=== PATIENT | male | born 1965 | race Caucasian/White ===

== ENCOUNTER 2019-03-07 08:30 | Outpatient (RCR) | payer OTHER, SELFPAY | END 2019-03-12 00:01 | LOC: RWY 08:30 | PROVIDERS: Family Provider Family Medicine; Visit Provider Surgery Surgical Oncology | DX: A41.9 Sepsis, unspecified organism (principal); E11.9 Type 2 diabetes mellitus without complications; Z94.0 Kidney transplant status; Z94.4 Liver transplant status | CPT/HCPCS: 36415; 80053 ×4; 80197 ×4; 82550 ×2; 82977 ×4; 83735 ×4; 84100 ×4; 85007; 85025 ×3; 85027 ==

== ENCOUNTER 2019-03-18 16:33 | Outpatient (REF) | payer OTHER, SELFPAY ==
[2019-03-18 17:22] LABS: Basophils % 0.5 %; Eosinophils # 0.1 10^3/uL (0.0-0.8); Hematocrit 30.3 % (42.0-52.0); Lymphocytes # 0.5 10^3/uL (0.8-4.8); Lymphocytes % 11.1 %; Mean Corpuscular Hemoglobin 31.2 pg (28.0-34.0); Mean Corpuscular Volume 94.4 fL (80-94); Mean Platelet Volume 10.4 fL (7.4-10.4); Monocytes # 0.2 10^3/uL (0.2-0.9); Monocytes % 5.4 %; Neutrophils # 3.2 10^3/uL (1.8-7.7); Neutrophils % 79.3 %; Nucleated Red Blood Cells % 0 %; Platelet Count 165 10^3/cmm (130-400); Red Blood Count 3.21 10^6/uL (4.1-5.3); Red Cell Distribution Width 14.4 % (12.1-15.1)
[2019-03-19 01:52] LABS: Alanine Aminotransferase 29 U/L (0-41); Albumin Level 3.7 g/dL (3.5-5.2); Alkaline Phosphatase 134 IU/L (40-130); Aspartate Amino Transferase 17 U/L (0-40); Blood Urea Nitrogen 14 mg/dL (6-20); Calcium 9.2 mg/Dl (8.6-10.0); Chloride 101 mmol/L (98-107); Globulin 2.4 g/dL (1.3-4.6); Glomerular Filtration Rate 69.8 mL/min (90-130); Glucose 167 mg/dL (74-109); Magnesium 1.4 mg/dL (1.7-2.3); Potassium 3.6 mmol/L (3.5-5.1); Sodium 137 mmol/L (136-145); Total Bilirubin 0.2 mg/dL (0.15-1.2); Total Protein 6.1 g/dL (6.6-8.7)
[2019-03-19 01:59] LABS: Anion Gap 18.6 (5-19); Carbon Dioxide 21 mmol/L (22-29)
== END 2019-03-18 16:34 | disposition home or self-care (01) ==
LOC: LAB 16:33
PROVIDERS: Family Provider Family Medicine; PCP Family Medicine; Visit Provider Surgery Surgical Oncology
DX: Z01.89 Encounter for other specified special examinations (principal)
CPT/HCPCS: 80053; 80197; 83735; 84100; 85025

== ENCOUNTER 2019-04-05 12:14 | Emergency (ER) | payer OTHER, SELFPAY ==
[2019-04-05] VITALS (55 sets, daily range): BP systolic 98–127; BP diastolic 64–80; PULSE 94–106; RESP 16–18; TEMP 36.9; O2SAT 92–98; BMI 27.6
--- NOTE | 2019-04-05 12:53 | XRR_ITS ---
PROCEDURE INFORMATION: Exam: XR Pelvis Exam date and time: 04/05/2019 1:31 PM Age: 53 years old Clinical indication: Injury or trauma; Fall; Initial encounter; Blunt trauma (contusions or hematomas); Right; Hip; Injury date: 3 days ago TECHNIQUE: Imaging protocol: XR pelvis. Views: 1 or 2 view. COMPARISON: No relevant prior studies available. FINDINGS: Bones/joints: Unremarkable. No acute fracture. Soft tissues: Diffuse soft tissue metallic densities seen throughout the right hip and right upper leg. The remainder of the soft tissues are unremarkable. XR/XR pelvis 1-2V* [id number] IMPRESSION: 1. No acute bone abnormality 2. Diffuse soft tissue densities right hip and upper leg
--- NOTE | 2019-04-05 12:53 | CT_ITS ---
WS: [id number] CT ABDOMEN AND PELVIS NONCONTRAST HISTORY: fall injury TECHNIQUE: Imaging performed through the abdomen and pelvis. Coronal and sagittal reformats are submi tted. All CT scans at [facility] use at least one of these dose optimization techniques: automated exposure control; mA and/or kV adjustment per patient size (includes targeted exams where d ose is matched to clinical indication); or iterative reconstruction. DLP: 1872.37 mGy.cm COMPARISON: None available. Lower thorax: Atelectasis at the lung bases. Dystrophic calcifications noted in the paraspinal distri bution beginning in the lower thoracic through lumbar and retroperitoneum. Heart is top normal size. No pericardial effusion. Liver: By history patient had a recent liver transplant. Subcapsular fluid collection along the RIGHT diaphragmatic surface measures 3.4 cm. Gallbladder: Not visualized and may been removed. Pancreas: Normal. Spleen: Spleen is slightly enlarged measuring 14.4 cm. There is a small cyst or fluid collection shayne g the lateral aspect of the spleen. Adrenal glands: Normal. Right kidney: Mild perinephric stranding with no obstruction. Left kidney: Mild perinephric stranding with no obstruction. Abdominal aorta and IVC are unremarkable. Additional edema within the upper abdomen mesentery. GI tract: No GI tract obstruction. Ostomy site in the RIGHT abdomen. Pelvis: There is a fluid collection inseparable from the lower pole of transplanted kidney in the RIG HT pelvis. Fluid collection extends between the RIGHT kidney and the urinary bladder. Urinary bladder is being displaced to the LEFT. This collection measures 14 x 14 cm. Osseous structures: No acute fractures are identified. Extensive calcifications are noted in the soft tissues of the RIGHT hip probably for myositis ossificans or dermatomyositis. CT/CT abdomen pelvis wo con [id number] IMPRESSION: 1. Large fluid collection measuring 14 x 14 cm in the RIGHT pelvis. Inseparabl e from the transplanted kidney in the RIGHT pelvis and displacing the urinary b ladder to the LEFT. This could be a urinoma from renal injury or bladder injury . Benign collection associated with the surgery or collecting ascites. 2. Prior cholecystectomy. 3. Mild mesenteric edema in the upper abdomen. 4. No GI tract obstruction.
--- NOTE | 2019-04-05 12:53 | XRR_ITS ---
PROCEDURE INFORMATION: Exam: XR Right Shoulder Exam date and time: 04/05/2019 1:31 PM Age: 53 years old Clinical indication: Injury or trauma; Fall; Initial encounter; Blunt trauma (contusions or hematomas; Shoulder; Right; Injury date: 3 days ago; Additional info: Fall, RT shoulder pain TECHNIQUE: Imaging protocol: XR Right shoulder. Views: 2 or more views. COMPARISON: No relevant prior studies available. FINDINGS: Bones/joints: There is an avulsion fracture in the lateral superior aspect of the right humeral head. Soft tissues: Normal. XR/XR shoulder RT min 2V* [id number] IMPRESSION: Displaced avulsion fracture superior lateral aspect right humeral head
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
--- NOTE | 2019-04-05 13:33 | ED_ITS ---
Entered by Dodie Keith, acting as scribe for Sindy Quiros MD Apr 05, 2019 12:14 Documented by User: Sindy Quiros MD 04/05/19 20:38 HPI - Fall General: Chief Complaint: Fall Stated Complaint: hip pain Time Seen by Provider: 04/05/19 12:43 Source: patient and family Mode of arrival: ambulatory Limitations: no limitations History of Present Illness: HPI Narrative: 53 yo male presents to ED after a fall 3 days ago. The patient states fell and hurt R hip and R arm. The patient is jaundiced after the fall; the states he had not been jaundiced before the fall. The patient has had a liver and kidney transplant in November at [facility]. He said his liver failed due to the [facility] water being poisoned and the liver failure caused the kidney failure. His liver and kidney functions have been normal since the transplant. complaint: fall Onset (ago): day(s) (3) Fall from: standing (running) Fall witnessed: no Place fall occurred: home Loss of consciousness: None Prolonged down time: no Symptoms prior to fall: none Context: tripped/slipped Location of injury: pelvis (R hip) Location of injury - extremities: Right: arm (upper arm) Severity: moderate Quality: aching Associated symptoms-after fall: Reports difficulty walking; Denies chest pain Review of Systems Const: Denies: fever Eyes: Denies: change in vision ENMT: Denies: throat pain or mouth pain Card: Denies: chest pain Resp: Denies: shortness of breath GI: Denies: nausea, vomiting or diarrhea Musc: Denies: back pain Skin/Breast: Denies: rash Neuro: Reports: difficulty walking Psych: Denies: depression Endo: Denies: excessive urination Bruce/Lymph: Denies: easy bruising All/Imm: Denies: hives PFSH ED PFSH: Statuses (acute, chronic, etc) shown below reflect problem list status as previously entered and may not be historically accurate Social History Smoking and tobacco status: never smoked Physical Exam Const: COMMON NORMALS: no apparent distress and healthy appearing HENMT: COMMON NORMALS: normocephalic and external nose normal HEAD & SCALP: normocephalic NOSE: external nose normal and no nasal discharge (nasal dischage) Eye: COMMON NORMALS: PERRL PUPIL: Yes PERRL Neck/C-Spine: COMMON NORMALS: full ROM and no lymphadenopathy Chest: COMMONS NORMALS: inspection of chest normal Resp: COMMON NORMALS: normal respiratory effort and clear to auscultation bilaterally AUSCULTATION: clear to auscultation bilaterally Cardio: COMMON NORMALS: regular rate and regular rhythm RATE: regular rate RHYTHM: regular rhythm GI: COMMON NORMALS: soft to palpation PALPATION: Yes soft Extremity: COMMON NORMALS: normal to inspection, full ROM and normal capillary refill Psych: COMMON NORMALS: mental status grossly normal and cooperative Skin: COMMON NORMALS: no rashes or lesions noted GENERAL SKIN EXAM: no rashes or lesions noted Course Vital Signs: Vital signs: Vital Signs Temperature 98.4 F 04/05/19 12:16 Pulse Rate 94 04/05/19 17:43 Respiratory Rate 18 04/05/19 20:32 Blood Pressure 113/71 04/05/19 19:50 Pulse Oximetry 94 04/05/19 19:45 MDM - Fall MDM Narrative: Medical decision making narrative: Patient presents here with fall does have a closed humerus fracture. 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 I spoke to [facility] transplant team and will transfer there ER to ER. Lab Data: Labs: Lab Results 04/05/19 04/05/19 04/05/19 Range/Units 13:38 13:38 13:38 WBC 11.1 H (4.0-10.0) 10^3/ uL RBC 3.30 L (4.1-5.3) 10^6/u L Hgb 10.0 L (11.7-16.6) g/dL Hct 31.3 L (42.0-52.0) % MCV 94.8 H (80-94) fL MCH 30.3 (28.0-34.0) pg MCHC 31.9 (30.0-36.0) g/dL RDW 14.9 (12.1-15.1) % Plt Count 133 (130-400) 10^3/c mm MPV 10.0 (7.4-10.4) fL Neut % (Auto) 90.8 % Lymph % (Auto) 1.8 % [place] % (Auto) 6.1 % Eos % (Auto) 0.0 % Baso % (Auto) 0.2 % Neut # (Auto) 10.1 H (1.8-7.7) 10^3/u L Lymph # (Auto) 0.2 L (0.8-4.8) 10^3/u L [place] # (Auto) 0.7 (0.2-0.9) 10^3/u L Eos # (Auto) 0.0 (0.0-0.8) 10^3/u L Baso # (Auto) 0.0 (0.0-0.1) 10^3/u L Nucleated RBC % (a uto) 0 % Nucleated RBCs # 0.0 /100WBC Sodium 130 L (136-145) mmol/L Potassium 4.6 (3.5-5.1) mmol/L Chloride 91 L (98-107) mmol/L Carbon Dioxide 22 (22-29) mmol/L Anion Gap 21.6 H (5-19) BUN 22 H (6-20) mg/dL Creatinine 2.1 H (0.7-1.2) mg/dL GFR Calculation 33.1 L (90-130) mL/min Glucose 192 H (74-109) mg/dL Lactic Acid 2.7 H (0.5-2.2) mmol/L Lactic Acid (Sepsi s) (0.5-2.2) mmol/L Lactate 2.7 H (0.5-2.2) mmol/L Calcium 9.1 (8.5-10.5) mg/dL Total Bilirubin 1.6 H (0.15-1.2) mg/dL AST 12 (0-40) U/L ALT 28 (0-41) U/L Alkaline Phosphata se 140 H (40-130) IU/L Total Protein 7.0 (6.6-8.7) g/dL Albumin 3.8 (3.5-5.2) g/dL Globulin 3.2 (1.3-4.6) g/dL Urine Color (Yellow) Urine Appearance (CLEAR) Urine pH (5-7) Ur Specific Gravit y (1.005-1.030) Urine Protein (Negative) Urine Glucose (UA) (Normal) Urine Ketones (Negative) Urine Occult Blood (Negative) Urine Nitrate (Negative) Urine Bilirubin (NEGATIVE) Urine Urobilinogen (Negative) mg/dL Ur Leukocyte Lindsay ase (Negative) Urine RBC (0-2) /hpf Urine WBC (0-5) /hpf Ur Squamous Epith Cells (0-5) Amorphous Sediment Urine Bacteria (NONE) Hyaline Casts Coarse Granular Ca sts /lpf Urine Mucus Blood Type Antibody Screen 04/05/19 04/05/19 04/05/19 Range/Units 13:38 18:08 19:28 WBC (4.0-10.0) 10^3/ uL RBC (4.1-5.3) 10^6/u L Hgb (11.7-16.6) g/dL Hct (42.0-52.0) % MCV (80-94) fL MCH (28.0-34.0) pg MCHC (30.0-36.0) g/dL RDW (12.1-15.1) % Plt Count (130-400) 10^3/c mm MPV (7.4-10.4) fL Neut % (Auto) % Lymph % (Auto) % [place] % (Auto) % Eos % (Auto) % Baso % (Auto) % Neut # (Auto) (1.8-7.7) 10^3/u L Lymph # (Auto) (0.8-4.8) 10^3/u L [place] # (Auto) (0.2-0.9) 10^3/u L Eos # (Auto) (0.0-0.8) 10^3/u L Baso # (Auto) (0.0-0.1) 10^3/u L Nucleated RBC % (a uto) % Nucleated RBCs # /100WBC Sodium (136-145) mmol/L Potassium (3.5-5.1) mmol/L Chloride (98-107) mmol/L Carbon Dioxide (22-29) mmol/L Anion Gap (5-19) BUN (6-20) mg/dL Creatinine (0.7-1.2) mg/dL GFR Calculation (90-130) mL/min Glucose (74-109) mg/dL Lactic Acid (0.5-2.2) mmol/L Lactic Acid (Sepsi s) 1.3 (0.5-2.2) mmol/L Lactate (0.5-2.2) mmol/L Calcium (8.5-10.5) mg/dL Total Bilirubin (0.15-1.2) mg/dL AST (0-40) U/L ALT (0-41) U/L Alkaline Phosphata se (40-130) IU/L Total Protein (6.6-8.7) g/dL Albumin (3.5-5.2) g/dL Globulin (1.3-4.6) g/dL Urine Color Yellow (Yellow) Urine Appearance Hazy A (CLEAR) Urine pH 5 (5-7) Ur Specific Gravit y 1.020 (1.005-1.030) Urine Protein 3+ H (Negative) Urine Glucose (UA) Norm (Normal) Urine Ketones 1+ H (Negative) Urine Occult Blood 3+ H (Negative) Urine Nitrate Negative (Negative) Urine Bilirubin 1+ H (NEGATIVE) Urine Urobilinogen Norm (Negative) mg/dL Ur Leukocyte Lindsay ase Negative (Negative) Urine RBC 40-50 H (0-2) /hpf Urine WBC 10-15 H (0-5) /hpf Ur Squamous Epith Cells 5-10 H (0-5) Amorphous Sediment 2+ Urine Bacteria 2+ H (NONE) Hyaline Casts 0-4 H Coarse Granular Ca sts 0-4 H /lpf Urine Mucus Trace Blood Type O Positive Antibody Screen Negative Imaging Data^: CT Abd/Pel: Radiologist's impression: [place] [address] CT Scan Report Signed Patient: Neno Mullins Unit #: [id number] : 1965 Age/Sex: 53 / M ADM Date: 04/05/19 Loc: ER Room/Bed: Attending Dr: Ordering Provider/Ordering MD: Carter Roberts NP Date of Service: 04/05/19 Procedure(s): CT abdomen pelvis [facility] [address] Accession Number(s): [id number] Report Number: [id number] WS: [id number] CT ABDOMEN AND PELVIS NONCONTRAST HISTORY: fall injury TECHNIQUE: Imaging performed through the abdomen and pelvis. Coronal and sagittal reformats are submitted. All CT scans at [facility] use at least one of these dose optimization techniques: automated exposure control; mA and/or kV adjustment per patient size (includes targeted exams where dose is matched to clinical indication); or iterative reconstruction. DLP: 1872.37 mGy.cm COMPARISON: None available. Lower thorax: Atelectasis at the lung bases. Dystrophic calcifications noted in the paraspinal distribution beginning in the lower thoracic through lumbar and retroperitoneum. Heart is top normal size. No pericardial effusion. Liver: By history patient had a recent liver transplant. Subcapsular fluid collection along the RIGHT diaphragmatic surface measures 3.4 cm. Gallbladder: Not visualized and may been removed. Pancreas: Normal. Spleen: Spleen is slightly enlarged measuring 14.4 cm. There is a small cyst or fluid collection along the lateral aspect of the spleen. Adrenal glands: Normal. Right kidney: Mild perinephric stranding with no obstruction. Left kidney: Mild perinephric stranding with no obstruction. Abdominal aorta and IVC are unremarkable. Additional edema within the upper abdomen mesentery. GI tract: No GI tract obstruction. Ostomy site in the RIGHT abdomen. Pelvis: There is a fluid collection inseparable from the lower pole of transplanted kidney in the RIGHT pelvis. Fluid collection extends between the RIGHT kidney and the urinary bladder. Urinary bladder is being displaced to the LEFT. This collection measures 14 x 14 cm. Osseous structures: No acute fractures are identified. Extensive calcifications are noted in the soft tissues of the RIGHT hip probably for myositis ossificans or dermatomyositis. CT/CT abdomen pelvis wo con [id number] IMPRESSION: 1. Large fluid collection measuring 14 x 14 cm in the RIGHT pelvis. Inseparable from the transplanted kidney in the RIGHT pelvis and displacing the urinary bladder to the LEFT. This could be a urinoma from renal injury or bladder injury. Benign collection associated with the surgery or collecting ascites. 2. Prior cholecystectomy. 3. Mild mesenteric edema in the upper abdomen. 4. No GI tract obstruction. Dictated By: Karen Montalvo DO Signed By: Karen Montalvo DO Signed Date/Time: 04/05/19 1418 DD/ Other Xray: Radiologist's impression: [address] [place] [address] XRay Report Signed Patient: Neno Mullins Unit #: [id number] : 1965 Age/Sex: 53 / M ADM Date: 0 Loc: ER Room/Bed: Attending Dr: Ordering Provider/Ordering MD: Carter Roberts NP Date of Service: 04/05/19 Procedure(s): XR shoulder RT min 2V* 56731 Accession Number(s): [id number] Report Number: [id number] PROCEDURE INFORMATION: Exam: XR Right Shoulder Exam date and time: 04/05/2019 1:31 PM Age: 53 years old Clinical indication: Injury or trauma; Fall; Initial encounter; Blunt trauma (contusions or hematomas; Shoulder; Right; Injury date: 3 days ago; Additional info: Fall, RT shoulder pain TECHNIQUE: Imaging protocol: XR Right shoulder. Views: 2 or more views. COMPARISON: No relevant prior studies available. FINDINGS: Bones/joints: There is an avulsion fracture in the lateral superior aspect of the right humeral head. Soft tissues: Normal. XR/XR shoulder RT min 2V* [id number] IMPRESSION: Displaced avulsion fracture superior lateral aspect right humeral head Dictated By: Donis Perales Signed By: Donis Perales Signed Date/Time: 04/05/19 1344 DD/ [address] [address] XRay Report Signed Patient: Neno Mullins Unit #: [id number] : 1965 Age/Sex: 53 / M ADM Date: 04/05/19 Loc: ER Room/Bed: Attending Dr: Ordering Provider/Ordering MD: Carter Roberts NP Date of Service: 04/05/19 Procedure(s): XR pelvis 1-2V* 66271 Accession Number(s): [id number] Report Number: [id number] PROCEDURE INFORMATION: Exam: XR Pelvis Exam date and time: 04/05/2019 1:31 PM Age: 53 years old Clinical indication: Injury or trauma; Fall; Initial encounter; Blunt trauma (contusions or hematomas); Right; Hip; Injury date: 3 days ago TECHNIQUE: Imaging protocol: XR pelvis. Views: 1 or 2 view. COMPARISON: No relevant prior studies available. FINDINGS: Bones/joints: Unremarkable. No acute fracture. Soft tissues: Diffuse soft tissue metallic densities seen throughout the right hip and right upper leg. The remainder of the soft tissues are unremarkable. XR/XR pelvis 1-2V* [id number] IMPRESSION: 1. No acute bone abnormality 2. Diffuse soft tissue densities right hip and upper leg Dictated By: Donis Perales Signed By: Donis Perales Signed Date/Time: 04/05/19 1354 DD/ Discharge Plan Discharge Patient Disposition: Xfer Other Clinical Impression: Fall, Fracture, humerus, Urinoma of kidney transplant Condition: Stable Referrals: Peyman Marie DO [Primary Care Provider] - Discharge Date/Time: 04/05/19 20:30 Coding Level of Care Code ED Steel Grinder for Chg Fwd Exam Problem Focused Documented by User: VIRGINIA Patel 04/09/19 07:25 HPI - Fall General: Chief Complaint: Fall Stated Complaint: hip pain Time Seen by Provider: 04/05/19 12:43 PFSH ED PFSH: Statuses (acute, chronic, etc) shown below reflect problem list status as previously entered and may not be historically accurate Social History Smoking and tobacco status: never smoked Course Vital Signs: Vital signs: Vital Signs Temperature 98.4 F 04/05/19 12:16 Pulse Rate 94 04/05/19 17:43 Respiratory Rate 18 04/05/19 20:32 Blood Pressure 113/71 04/05/19 19:50 Pulse Oximetry 94 04/05/19 19:45 MDM - Fall 2 Lab Data: Labs: Lab Results 04/05/19 04/05/19 04/05/19 Range/Units 13:38 13:38 13:38 WBC 11.1 H (4.0-10.0) 10^3/ uL RBC 3.30 L (4.1-5.3) 10^6/u L Hgb 10.0 L (11.7-16.6) g/dL Hct 31.3 L (42.0-52.0) % MCV 94.8 H (80-94) fL MCH 30.3 (28.0-34.0) pg MCHC 31.9 (30.0-36.0) g/dL RDW 14.9 (12.1-15.1) % Plt Count 133 (130-400) 10^3/c mm MPV 10.0 (7.4-10.4) fL Neut % (Auto) 90.8 % Lymph % (Auto) 1.8 % [place] % (Auto) 6.1 % Eos % (Auto) 0.0 % Baso % (Auto) 0.2 % Neut # (Auto) 10.1 H (1.8-7.7) 10^3/u L Lymph # (Auto) 0.2 L (0.8-4.8) 10^3/u L [place] # (Auto) 0.7 (0.2-0.9) 10^3/u L Eos # (Auto) 0.0 (0.0-0.8) 10^3/u L Baso # (Auto) 0.0 (0.0-0.1) 10^3/u L Nucleated RBC % (a uto) 0 % Nucleated RBCs # 0.0 /100WBC Sodium 130 L (136-145) mmol/L Potassium 4.6 (3.5-5.1) mmol/L Chloride 91 L (98-107) mmol/L Carbon Dioxide 22 (22-29) mmol/L Anion Gap 21.6 H (5-19) BUN 22 H (6-20) mg/dL Creatinine 2.1 H (0.7-1.2) mg/dL GFR Calculation 33.1 L (90-130) mL/min Glucose 192 H (74-109) mg/dL Lactic Acid 2.7 H (0.5-2.2) mmol/L Lactic Acid (Sepsi s) (0.5-2.2) mmol/L Lactate 2.7 H (0.5-2.2) mmol/L Calcium 9.1 (8.5-10.5) mg/dL Total Bilirubin 1.6 H (0.15-1.2) mg/dL AST 12 (0-40) U/L ALT 28 (0-41) U/L Alkaline Phosphata se 140 H (40-130) IU/L Total Protein 7.0 (6.6-8.7) g/dL Albumin 3.8 (3.5-5.2) g/dL Globulin 3.2 (1.3-4.6) g/dL Urine Color (Yellow) Urine Appearance (CLEAR) Urine pH (5-7) Ur Specific Gravit y (1.005-1.030) Urine Protein (Negative) Urine Glucose (UA) (Normal) Urine Ketones (Negative) Urine Occult Blood (Negative) Urine Nitrate (Negative) Urine Bilirubin (NEGATIVE) Urine Urobilinogen (Negative) mg/dL Ur Leukocyte Lindsay ase (Negative) Urine RBC (0-2) /hpf Urine WBC (0-5) /hpf Ur Squamous Epith Cells (0-5) Amorphous Sediment Urine Bacteria (NONE) Hyaline Casts Coarse Granular Ca sts /lpf Urine Mucus Blood Type Antibody Screen 04/05/19 04/05/19 04/05/19 Range/Units 13:38 18:08 19:28 WBC (4.0-10.0) 10^3/ uL RBC (4.1-5.3) 10^6/u L Hgb (11.7-16.6) g/dL Hct (42.0-52.0) % MCV (80-94) fL MCH (28.0-34.0) pg MCHC (30.0-36.0) g/dL RDW (12.1-15.1) % Plt Count (130-400) 10^3/c mm MPV (7.4-10.4) fL Neut % (Auto) % Lymph % (Auto) % [place] % (Auto) % Eos % (Auto) % Baso % (Auto) % Neut # (Auto) (1.8-7.7) 10^3/u L Lymph # (Auto) (0.8-4.8) 10^3/u L [place] # (Auto) (0.2-0.9) 10^3/u L Eos # (Auto) (0.0-0.8) 10^3/u L Baso # (Auto) (0.0-0.1) 10^3/u L Nucleated RBC % (a uto) % Nucleated RBCs # /100WBC Sodium (136-145) mmol/L Potassium (3.5-5.1) mmol/L Chloride (98-107) mmol/L Carbon Dioxide (22-29) mmol/L Anion Gap (5-19) BUN (6-20) mg/dL Creatinine (0.7-1.2) mg/dL GFR Calculation (90-130) mL/min Glucose (74-109) mg/dL Lactic Acid (0.5-2.2) mmol/L Lactic Acid (Sepsi s) 1.3 (0.5-2.2) mmol/L Lactate (0.5-2.2) mmol/L Calcium (8.5-10.5) mg/dL Total Bilirubin (0.15-1.2) mg/dL AST (0-40) U/L ALT (0-41) U/L Alkaline Phosphata se (40-130) IU/L Total Protein (6.6-8.7) g/dL Albumin (3.5-5.2) g/dL Globulin (1.3-4.6) g/dL Urine Color Yellow (Yellow) Urine Appearance Hazy A (CLEAR) Urine pH 5 (5-7) Ur Specific Gravit y 1.020 (1.005-1.030) Urine Protein 3+ H (Negative) Urine Glucose (UA) Norm (Normal) Urine Ketones 1+ H (Negative) Urine Occult Blood 3+ H (Negative) Urine Nitrate Negative (Negative) Urine Bilirubin 1+ H (NEGATIVE) Urine Urobilinogen Norm (Negative) mg/dL Ur Leukocyte Lindsay ase Negative (Negative) Urine RBC 40-50 H (0-2) /hpf Urine WBC 10-15 H (0-5) /hpf Ur Squamous Epith Cells 5-10 H (0-5) Amorphous Sediment 2+ Urine Bacteria 2+ H (NONE) Hyaline Casts 0-4 H Coarse Granular Ca sts 0-4 H /lpf Urine Mucus Trace Blood Type O Positive Antibody Screen Negative Discharge Plan Discharge Patient Disposition: Xfer Other Clinical Impression: Fall, Fracture, humerus, Urinoma of kidney transplant Condition: Stable Referrals: Peyman Marie DO [Primary Care Provider] - Discharge Date/Time: 04/05/19 20:30 Coding Level of Care Code ED Steel Grinder for Chg Fwd Exam Problem Focused The documentation recorded by the Inna awan Valerie R, accurately reflects the service I personally performed and the decisions made by me, Sindy Quiros MD Apr 05, 2019 12:14
--- NOTE | 2019-04-05 13:39 | PC.NURSE ---
3 attempts due to patient jerking arm away
[2019-04-05] MEDS: fentaNYL 50 mcg/mL INJ 2mL IVP (13:40)
[2019-04-05 13:48] LABS: Basophils % 0.2 %; Hematocrit 31.3 % (42.0-52.0); Lymphocytes # 0.2 10^3/uL (0.8-4.8); Lymphocytes % 1.8 %; Mean Corpuscular HGB Conc 31.9 g/dL (30.0-36.0); Mean Corpuscular Hemoglobin 30.3 pg (28.0-34.0); Mean Corpuscular Volume 94.8 fL (80-94); Monocytes # 0.7 10^3/uL (0.2-0.9); Monocytes % 6.1 %; Neutrophils # 10.1 10^3/uL (1.8-7.7); Neutrophils % 90.8 %; Nucleated Red Blood Cells % 0 %; Platelet Count 133 10^3/cmm (130-400); Red Cell Distribution Width 14.9 % (12.1-15.1); White Blood Count 11.1 10^3/uL (4.0-10.0)
[2019-04-05 14:02] LABS: Alanine Aminotransferase 28 U/L (0-41); Albumin Level 3.8 g/dL (3.5-5.2); Alkaline Phosphatase 140 IU/L (40-130); Anion Gap 21.6 (5-19); Aspartate Amino Transferase 12 U/L (0-40); Blood Urea Nitrogen 22 mg/dL (6-20); Calcium 9.1 mg/dL (8.5-10.5); Carbon Dioxide 22 mmol/L (22-29); Chloride 91 mmol/L (98-107); Globulin 3.2 g/dL (1.3-4.6); Glomerular Filtration Rate 33.1 mL/min (90-130); Glucose 192 mg/dL (74-109); Potassium 4.6 mmol/L (3.5-5.1); Sodium 130 mmol/L (136-145); Total Bilirubin 1.6 mg/dL (0.15-1.2)
[2019-04-05 14:03] LABS: Lactate (Lactic Acid level) 2.7 mmol/L (0.5-2.2); Lactic Sepsis W/Reflex 2.7 mmol/L (0.5-2.2)
[2019-04-05] MEDS: sodium chloride 0.9% 1,000 ML 999 ML IV (14:16)
[2019-04-05 15:33] LABS: Reflex Lactate Order REFLEX LACTIC ORDERD
[2019-04-05] MEDS: ondansetron 2 mg/ML SDV 2 mL 4 MG IVP (17:04)
[2019-04-05] MEDS: morphine 4 mg/mL SDV 1 mL IVP ×2 (17:04→20:32)
[2019-04-05 19:15] LABS: Bilirubin Urine 1+ (NEGATIVE); Blood Urine 3+ (Negative); Glucose Urine UA Norm (Normal); Ketones Urine 1+ (Negative); Leukocyte Esterase Urine Negative (Negative); Nitrate Urine Negative (Negative); Protein Urine 3+ (Negative); Urine Appearance Hazy (CLEAR); Urine Color Yellow (Yellow); Urobilinogen Urine Norm (Negative); pH Urine 5 (5-7)
[2019-04-05 19:23] LABS: Coarse Granular Casts Urine 0-4 /lpf; Hyaline Casts Urine 0-4; Mucus Urine TRACE
[2019-04-05 19:24] LABS: RBC Urine 40-50 /hpf (0-2)
[2019-04-05 19:25] LABS: Amorphous Sediment Urine 2+; Bacteria Urine 2+
[2019-04-05 19:26] LABS: Add Urine Culture? Yes
[2019-04-05 19:51] LABS: Lactic Acid level (Lactate) 1.3 mmol/L (0.5-2.2)
== END 2019-04-05 20:30 | disposition other institution (70) ==
PROVIDERS: Nurse Practitioner Family; Emergency Provider Emergency Medicine; Family Provider Family Medicine; PCP Family Medicine
DX: S42.291A Other displaced fracture of upper end of right humerus, initial encounter for closed fracture (principal); N36.8 Other specified disorders of urethra; Z94.0 Kidney transplant status; Z94.4 Liver transplant status; W19.XXXA Unspecified fall, initial encounter; Z79.82 Long term (current) use of aspirin; R53.1 Weakness
CPT/HCPCS: 36415; 51702; 72170; 73030; 74176; 80053; 81001; 83605; 85025; 86850; 86900; 87040; 87086; 96360; 96374; 99284; J2270; J2405; J3010; J7030

== ENCOUNTER 2019-07-19 11:49 | Emergency (ER) | payer OTHER, SELFPAY ==
[2019-07-19 12:01] VITALS: BP 140/87; PULSE 81; RESP 14; TEMP 36.9; O2SAT 95; BMI 27.1
--- NOTE | 2019-07-19 12:30 | CT_ITS ---
WS: [id number] CT abdomen pelvis wo con [id number] REASON FOR EXAM: enlarging colostomy IV CONTRAST ADMINISTERED: None. TOTAL EXAM DLP: 1462.[address] scans at [facility] use at least one of these dose optimization techniques: automat ed exposure control; mA and/or kV adjustment per patient size (includes targeted exams where dose is matched to clinical indication); or iterative reconstruction. FINDINGS: The lower lung pierre are normal. No masses are seen. Along the dome of the liver is a 1.91 cm hypodense mass. The remaining liver essentially normal. The gallbladder is been removed. The stomach was normal. The spleen showed no abnormalities. The pancreas was essentially normal there is arteriosclerotic changes in the pancreatic artery. Along the mid right lateral abdomen is a colostomy the orifice measured 2.299 cm. There is mild edema changes seen across the mid abdomen just above the kidneys. Consistent with a sma ll amount of ascites. The kidneys are irregular in outline. A stone is seen in the left kidney There is no hydronephrosis seen. There is postop changes surrounding the aorta inferior vena cava. Overriding the right hemipelvis the re is evidence of a normal-appearing kidney ureter extending into the bladder area. As kidney appears to be normal in appearance. There is soft tissue calcification overriding the inguinal canal extending across the right upper ext remity. There is heavy arteriosclerotic changes of the vasculature particularly in the inguinal area femoral artery areas. CT/CT abdomen pelvis wo con [id number] IMPRESSION: Kidney transplant on the right side appears to be normal in appearance. The left kidney shows a stone in the pelvis area. There is a small amount of ascites in the upper mid mid abdomen. There is a questionable mass along the left dome of the liver. This appears to be in the liver. . colostomy on the right the opening appears to be normal limits.
--- NOTE | 2019-07-19 12:32 | W.ED.GENADLT ---
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 He was told by the surgeon 4 months ago that he will be contacted the next day to let him know when the colostomy will be taken down. He apparently has not heard back from the surgeon. He states that the colostomy is getting larger however the colostomy bag still covers it and he does not get any stool leakage. He went to see his primary care provider today who asked him to be seen in the emergency department for further evaluation and management. The patient occasionally has some pain at the colostomy site, denies any fever, no other complaints. MD complaint: colostomy increasing Associated symptoms: Reports chest pain; Deny dyspnea, headache(s), nausea, rash, palpitations or vomiting Review of Systems General: Reports: 10 or more systems reviewed and unremarkable except in HPI and below Const: Denies: fever, chills or body aches Card: Reports: chest pain; Denies: palpitations, irregular heart rhythm, edema or swelling of feet/ankles Resp: Denies: shortness of breath, productive cough or non-productive cough GI: Reports: abdominal pain (occassionally at the colostomy site); Denies: nausea or vomiting : Denies: flank pain, painful urination, urinary frequency, urinary urgency or urinary hesitancy Musc: Denies: neck pain, back pain or extremity swelling Skin/Breast: Denies: rash, itching or redness Neuro: Denies: headache, numbness in extremities or weakness in extremities PFSH ED PFSH: Social History Smoking and tobacco status: never smoked Physical Exam Const: COMMON NORMALS: no apparent distress, average body habitus, oriented x3, no limitations, healthy appearing, alert and well nourished HENMT: COMMON NORMALS: normocephalic, head/scalp atraumatic and moist oral mucous membranes HEAD & SCALP: normocephalic and atraumatic Neck/C-Spine: COMMON NORMALS: no meningeal signs and no JVD Chest: COMMONS NORMALS: inspection of chest normal and palpation of chest normal Resp: COMMON NORMALS: normal respiratory effort, no retractions, no use of accessory muscles, clear to auscultation bilaterally and percussion normal AUSCULTATION: clear to auscultation bilaterally PERCUSSION: percussion normal Cardio: COMMON NORMALS: no JVD, regular rate, regular rhythm, S1 normal heart sound, S2 normal heart sound, no gallops, no clicks, no murmurs, no rub and peripheral pulses 2+ throughout RATE: regular rate RHYTHM: regular rhythm HEART SOUNDS: S1 normal and S2 normal PERIPHERAL PULSES: pulses 2+ throughout GI: COMMON NORMALS: normal to inspection, nondistended, normoactive bowel sounds, soft to palpation, non-tender, no hepatosplenomegaly, no masses and no bruits PALPATION: Yes soft and Yes no hepatosplenomegaly OTHER: colostomy site clean and dry. Colostomy bag in-situ. No tenderness. : COMMON NORMALS: Yes no CVA tenderness BLADDER/KIDNEY EXAM: Yes no CVA tenderness Back/Pelvis: COMMON NORMALS: no CVA tenderness Extremity: COMMON NORMALS: normal to inspection, full ROM, normal capillary refill, no calf tenderness and no pedal edema Neuro: COMMON NORMALS: oriented x3 SENSORIUM/ORIENTATION: Yes alert MENINGEAL SIGNS: Yes no meningeal signs Skin: COMMON NORMALS: no rashes or lesions noted, no wounds, skin turgor normal, no jaundice, no petechiae and no mottling GENERAL SKIN EXAM: no rashes or lesions noted and turgor normal Course Consultations: Consultation #1: Discussed the patient wit Dr. Michael Lemus, surgeon at [facility] in [place]. He is the patient's surgeon and he says that he has discussed with the transplant team and they would like for him to be on the minimal immunosuppressants prior to surgery. He wants to see the patient in the clinic within a week and then discuss taking down the colostomy. He said the patient can call to make an appointment. Time: 12:45 Vital Signs: Vital signs: Vital Signs Temperature 98.5 F 07/19/19 12:01 Pulse Rate 81 07/19/19 12:01 Respiratory Rate 14 07/19/19 12:01 Blood Pressure 140/87 07/19/19 12:01 Pulse Oximetry 95 07/19/19 12:01 MDM - General Adult MDM Narrative: Medical decision making narrative: 54-year-old gentleman with a colostomy who presents to the emergency department with concerns about colostomy. The main thing is he would like for his colostomy to be taken down. The patient is a liver and kidney transplant patient and is on immunosuppressants. After discussion with his surgeon the patient will be seen in the clinic within 1 week. The patient was informed about my conversation with the surgeon. He is discharged home with no new orders. Imaging Data^: CT Abd/Pel: Radiologist's impression: [facility] [address] [address] CT Scan Report Signed Patient: Lanny Mullins #: [id number] : 1965Acct#:[id number] Age/Sex: 54 / MADM Date: 07/19/19 Loc: ERRoom/Bed: Attending Dr: Ordering Provider/Ordering MD: Rosanna Smith [place], [facility] of Service: 07/19/19 Procedure(s): CT abdomen pelvis wo con [id number] Accession Number(s): [id number] Report Number: [id number] WS: [id number] CT abdomen pelvis wo con [id number] REASON FOR EXAM: enlarging colostomy IV CONTRAST ADMINISTERED: None. TOTAL EXAM DLP: 1462.[address] scans at [facility] use at least one of these dose optimization techniques: automated exposure control; mA and/or kV adjustment per patient size (includes targeted exams where dose is matched to clinical indication); or iterative reconstruction. FINDINGS: The lower lung pierre are normal. No masses are seen. Along the dome of the liver is a 1.91 cm hypodense mass. The remaining liver essentially normal. The gallbladder is been removed. The stomach was normal. The spleen showed no abnormalities. The pancreas was essentially normal there is arteriosclerotic changes in the pancreatic artery. Along the mid right lateral abdomen is a colostomy the orifice measured 2.299 cm. There is mild edema changes seen across the mid abdomen just above the kidneys. Consistent with a small amount of ascites. The kidneys are irregular in outline. A stone is seen in the left kidney There is no hydronephrosis seen. There is postop changes surrounding the aorta inferior vena cava. Overriding the right hemipelvis there is evidence of a normal-appearing kidney ureter extending into the bladder area. As kidney appears to be normal in appearance. There is soft tissue calcification overriding the inguinal canal extending across the right upper extremity. There is heavy arteriosclerotic changes of the vasculature particularly in the inguinal area femoral artery areas. CT/CT abdomen pelvis wo con [id number] IMPRESSION: Kidney transplant on the right side appears to be normal in appearance. The left kidney shows a stone in the pelvis area. There is a small amount of ascites in the upper mid mid abdomen. There is a questionable mass along the left dome of the liver. This appears to be in the liver. . colostomy on the right the opening appears to be normal limits. Dictated By:Ike Stewart DO Signed By:Ike Stewart DOSigned Date/Time:07/19/19 1323 DD/ 1314 Discharge Plan Discharge Patient Disposition: Home, Self-Care Clinical Impression: Complication of ostomy Condition: Stable Prescriptions: Continued loperamide 2 mg Capsule 2 mg PO Q6H PRN (Reason: Diarrhea) RF: 0 tacrolimus 5 mg Capsule 5 mg PO Q12H RF: 0 diphenoxylate-atropine [Lomotil] 2.5-0.025 mg Tablet 2 tab PO DAILY PRN (Reason: Diarrhea) RF: 0 sulfamethoxazole-trimethoprim [Bactrim DS] 800-160 mg Tablet 1 tab PO DAILY RF: 0 magnesium oxide [MagOx] 400 mg (241.3 mg magnesium) Tablet 800 mg PO DAILY RF: 0 calcium carbonate [Calcium 500] 500 mg calcium (1,250 mg) Tablet 500 mg PO DAILY RF: 0 tamsulosin 0.4 mg Capsule 0.8 mg PO DAILY RF: 0 levothyroxine 50 mcg Tablet 50 mcg PO DAILY RF: 0 calcium polycarbophil 625 mg Tablet 625 mg PO BID RF: 0 aspirin 81 mg Tablet,Chewable 81 mg PO DAILY RF: 0 mirtazapine 15 mg Tablet 15 mg PO DAILY RF: 0 gabapentin 100 mg Capsule 200 mg PO BID RF: 0 ergocalciferol (vitamin D2) 50,000 unit Capsule 50,000 unit PO Q7D RF: 0 finasteride 5 mg Tablet 5 mg PO DAILY RF: 0 prednisolone 5 mg Tablet 20 mg PO DAILY RF: 0 potassium chloride 20 mEq Tablet Extended Release 20 meq PO DAILY RF: 0 testosterone 1.62 % (20.25 mg/1.25 gram) Gel In Packet 2 packet TRANSDERMAL DAILY RF: 0 midodrine 5 mg Tablet 5 mg PO DAILY RF: 0 fludrocortisone 0.1 mg Tablet 0.1 mg PO DAILY RF: 0 mycophenolate sodium 360 mg Tablet,Delayed Release (Dr/Ec) 360 mg PO BID RF: 0 Discharge Orders: Discharge Order (Routine); Ordered 07/19/19 Ordered By: Rosanna Smith Referrals: Peyman Marie DO [Primary Care Provider] - 4-7 days Activity Restrictions/Additional Instructions: Return for any new or worsening symptoms. Call the office of the surgeon, Dr. Lemus in [place] to schedule a follow-up appointment within 1 week. He said he wants to see you in the office in 1 week. Continue your home medications as prescribed. Discharge Date/Time: 07/19/19 14:06 Coding Level of Care Code ED Animal Care Service Worker for Jaky Fwd Exam Comprehensive
== END 2019-07-19 14:06 | disposition home or self-care (01) ==
PROVIDERS: Emergency Provider Family Medicine; PCP Family Medicine
DX: K94.00 Colostomy complication, unspecified (principal); Z79.82 Long term (current) use of aspirin; Z94.0 Kidney transplant status; Z94.4 Liver transplant status
CPT/HCPCS: 12345; 74176; 99281; 99282

== ENCOUNTER 2020-03-20 06:30 | Emergency (ER) | payer OTHER, SELFPAY ==
[2020-03-20 06:35] VITALS: BP 208/93; PULSE 68; RESP 18; TEMP 36.9; O2SAT 98; BMI 31.1
[2020-03-20 06:48] VITALS: BP 154/96; PULSE 79; RESP 18; O2SAT 95
--- NOTE | 2020-03-20 06:53 | XR_ITS ---
WS: [id number] ABDOMEN 1 VIEW(S) HISTORY: L flank pain COMPARISON: None available. Quality of examination is limited by body habitus. Numerous surgical clips over the abdomen. No renal or ureteral calcifications are identified. Numerous soft tissue calcifications over the RIGHT hip. No bone abnormality. XR/XR KUB portable [id number] IMPRESSION: Quality of examination is limited due to body habitus. No renal or ureteral mima cifications identified.
[2020-03-20 07:05] LABS: Basophils % 0.4 %; Eosinophils % 0.8 %; Hematocrit 37.9 % (42.0-52.0); Hemoglobin 11.5 g/dL (11.7-16.6); Lymphocytes # 0.4 10^3/uL (0.8-4.8); Lymphocytes % 7.9 %; Mean Corpuscular HGB Conc 30.3 g/dL (30.0-36.0); Mean Corpuscular Hemoglobin 26.9 pg (28.0-34.0); Mean Corpuscular Volume 88.6 fL (80-94); Mean Platelet Volume 10.4 fL (7.4-10.4); Monocytes # 0.3 10^3/uL (0.2-0.9); Monocytes % 5.1 %; Neutrophils # 4.53 10^3/uL (1.8-7.7); Neutrophils % 85.4 %; Nucleated Red Blood Cells % 0 %; Platelet Count 154 10^3/cmm (130-400); Red Blood Count 4.28 10^6/uL (4.1-5.3); Red Cell Distribution Width 14.7 % (12.1-15.1); White Blood Count 5.3 10^3/uL (4.0-10.0)
[2020-03-20] MEDS: ondansetron 2 mg/ML SDV 2 mL 4 MG IVP (07:06)
[2020-03-20 07:07] VITALS: RESP 19; O2SAT 94
[2020-03-20] MEDS: morphine 4 mg/mL SDV 1 mL IVP ×2 (07:07→08:50)
[2020-03-20 07:15] LABS: Alanine Aminotransferase 36 U/L (0-41); Albumin Level 4.4 g/dL (3.5-5.2); Alkaline Phosphatase 106 IU/L (40-130); Aspartate Amino Transferase 29 U/L (0-40); Blood Urea Nitrogen 7 mg/dL (6-20); Calcium 9.2 mg/dL (8.5-10.5); Carbon Dioxide 27 mmol/L (22-29); Chloride 99 mmol/L (98-107); Globulin 2.5 g/dL (1.3-4.6); Glomerular Filtration Rate 57.3 mL/min (90-130); Glucose 205 mg/dL (65-115); Osmolality Calculated 288 mOsm/kg (285-295); Sodium 137 mmol/L (136-145); Total Bilirubin 0.8 mg/dL (0.15-1.2); Total Protein 6.9 g/dL (6.6-8.7)
--- NOTE | 2020-03-20 07:16 | W.ED.BACK ---
HPI - Back Pain/Injury General: Chief Complaint: Back Pain/Injury Stated Complaint: Kidney pain Time Seen by Provider: 03/20/20 06:42 History of Present Illness: HPI Narrative: 54-year-old male presents emergency room with complaint of left leg pain he had supply. Last week which resolved spontaneously, then began again last night he denies any hematuria has no history of kidney stones radiates into his lower back. He has not noticed any triggers or relieving xp he denies any fever sweats or chills. MD elicited complaint: back pain Onset (ago): hour(s) Timing: intermittent Severity: severe Similar Symptoms Previously: Yes Quality: sharp Location: left flank Exacerbating factors: none Relieving factors: none Associated symptoms: Deny abdominal pain, arthralgias, chills, change in bowel habits, difficulty walking, dysuria, fatigue, fecal incontinence, fever(s), hematuria, myalgias, nausea, numbness, syncope, tingling/numbness/burning, urinary frequency, urinary urgency, vomiting or weakness Review of Systems Const: Denies: fever(s) or chills ENMT: Denies: throat pain, ear or mastoid pain, nasal discharge or nasal congestion Card: Denies: syncope Resp: Denies: dyspnea, productive cough or non-productive cough GI: Denies: abdominal pain, nausea, vomiting, fecal incontinence or change in bowel habits : Denies: dysuria, urinary urgency or hematuria Skin/Breast: Denies: rash or pruritus Neuro: Denies: difficulty walking PFSH ED PFSH: Social History Smoking and tobacco status: never smoked Physical Exam Const: COMMON NORMALS: no acute distress GENERAL APPEARANCE: cooperative and comfortable ORIENTATION/CONSCIOUSNESS: Yes awake, Yes oriented to person, Yes oriented to place and Yes oriented to time HENMT: COMMON NORMALS: normocephalic, atraumatic and hearing grossly normal bilaterally HEAD & SCALP: normocephalic and atraumatic Neck/C-Spine: COMMON NORMALS: no JVD Resp: COMMON NORMALS: normal respiratory effort, No retractions, No use of accessory muscles and clear to auscultation bilaterally AUSCULTATION: clear to auscultation bilaterally Cardio: COMMON NORMALS: no JVD, regular rate, regular rhythm and No murmurs present (Cardio) RATE: regular rate RHYTHM: regular rhythm GI: COMMON NORMALS: Soft to palpation and No hepatosplenomegaly present AUSCULTATION: Yes normoactive bowel sounds PALPATION: Yes Soft to palpation, No Tenderness to palpation present (GI), No Guarding due to palpation present (GI) and Yes No hepatosplenomegaly present : BLADDER/KIDNEY EXAM: Yes CVA tenderness Back/Pelvis: GENERAL BACK: Yes CVA tenderness CVA tenderness: left Extremity: COMMON NORMALS: normal to inspection, capillary refill normal, no clubbing, cyanosis or edema, no calf tenderness and no pedal edema Neuro: SENSORIUM/ORIENTATION: Yes oriented to person, Yes oriented to place and Yes oriented to time Skin: COMMON NORMALS: no rashes or lesions noted GENERAL SKIN EXAM: no rashes or lesions noted Course Vital Signs: Vital signs: Vital Signs Temperature 98.5 F 03/20/20 06:35 Pulse Rate 70 03/20/20 07:39 Respiratory Rate 18 03/20/20 08:50 Blood Pressure 154/96 03/20/20 07:39 Pulse Oximetry 98 03/20/20 08:50 MDM - Back Pain/Injury MDM Narrative: Medical decision making narrative: Renal stones on the left on CT. 3 stones greatest 1 5 mm slight elevation in creatinine discussed with Dr. Taveras plan to see him on March 23 his office will have him use laxatives and be n.p.o. the night before for possible procedure. Pain medications given he is already on tamsulosin patient has a strain urine to collect stone if it should pass return if has uncontrollable pain. Lab Data: Labs: Lab Results 03/20/20 03/20/20 03/20/20 Range/Units 06:50 06:50 07:23 WBC 5.3 (4.0-10.0) 10^3/ uL RBC 4.28 (4.1-5.3) 10^6/u L Hgb 11.5 L (11.7-16.6) g/dL Hct 37.9 L (42.0-52.0) % MCV 88.6 (80-94) fL MCH 26.9 L (28.0-34.0) pg MCHC 30.3 (30.0-36.0) g/dL RDW 14.7 (12.1-15.1) % Plt Count 154 (130-400) 10^3/c mm MPV 10.4 (7.4-10.4) fL Neut % (Auto) 85.4 % Lymph % (Auto) 7.9 % [place] % (Auto) 5.1 % Eos % (Auto) 0.8 % Baso % (Auto) 0.4 % Neut # (Auto) 4.53 (1.8-7.7) 10^3/u L Lymph # (Auto) 0.4 L (0.8-4.8) 10^3/u L [place] # (Auto) 0.3 (0.2-0.9) 10^3/u L Eos # (Auto) 0.0 (0.0-0.8) 10^3/u L Baso # (Auto) 0.0 (0.0-0.1) 10^3/u L Nucleated RBC % (a uto) 0 % Nucleated RBCs # 0.0 /100WBC Sodium 137 (136-145) mmol/L Potassium 4.0 (3.5-5.1) mmol/L Chloride 99 (98-107) mmol/L Carbon Dioxide 27 (22-29) mmol/L Anion Gap 15.0 (5-19) BUN 7 (6-20) mg/dL Creatinine 1.3 H (0.7-1.2) mg/dL GFR Calculation 57.3 L (90-130) mL/min Glucose 205 H (65-115) mg/dL Calculated Osmolal ity 288 (285-295) mOsm/k g Calcium 9.2 (8.5-10.5) mg/dL Total Bilirubin 0.8 (0.15-1.2) mg/dL AST 29 (0-40) U/L ALT 36 (0-41) U/L Alkaline Phosphata se 106 (40-130) IU/L Total Protein 6.9 (6.6-8.7) g/dL Albumin 4.4 (3.5-5.2) g/dL Globulin 2.5 (1.3-4.6) g/dL Urine Color Yellow (Yellow) Urine Appearance Clear (CLEAR) Urine pH 5.0 (5-7) Ur Specific Gravit y 1.020 (1.005-1.030) Urine Protein Neg (Negative) Urine Glucose (UA) Trace H (Normal) Urine Ketones Negative (Negative) Urine Blood 2+ H (Negative) Urine Nitrate Negative (Negative) Urine Bilirubin Neg (Negative) Urine Urobilinogen Norm (Negative) mg/dL Ur Leukocyte Lindsay ase Negative (Negative) Urine RBC 5-10 H (0-2) /hpf Urine WBC None (0-5) /hpf Ur Squamous Epith Cells 0-4 H (0-5) /hpf Amorphous Sediment Not Reportable Urine Bacteria Trace (NONE) /hpf Discharge Plan Discharge Patient Disposition: Home Clinical Impression: Left nephrolithiasis Condition: Stable Prescriptions: New hydrocodone-acetaminophen 5-325 mg tablet 1 tab PO Q6H PRN (Reason: pain) Qty: 25 RF: 0 Zofran 4 mg tablet 4 mg PO Q6H PRN (Reason: nausea and vomiting) Qty: 20 RF: 0 No Action loperamide 2 mg Capsule 2 mg PO Q6H PRN (Reason: Diarrhea) RF: 0 tacrolimus 5 mg Capsule 5 mg PO Q12H RF: 0 diphenoxylate-atropine [Lomotil] 2.5-0.025 mg Tablet 2 tab PO DAILY PRN (Reason: Diarrhea) RF: 0 sulfamethoxazole-trimethoprim [Bactrim DS] 800-160 mg Tablet 1 tab PO DAILY RF: 0 magnesium oxide [MagOx] 400 mg (241.3 mg magnesium) Tablet 800 mg PO DAILY RF: 0 calcium carbonate [Calcium 500] 500 mg calcium (1,250 mg) Tablet 500 mg PO DAILY RF: 0 tamsulosin 0.4 mg Capsule 0.8 mg PO DAILY RF: 0 levothyroxine 50 mcg Tablet 50 mcg PO DAILY RF: 0 calcium polycarbophil 625 mg Tablet 625 mg PO BID RF: 0 aspirin 81 mg Tablet,Chewable 81 mg PO DAILY RF: 0 mirtazapine 15 mg Tablet 15 mg PO DAILY RF: 0 gabapentin 100 mg Capsule 200 mg PO BID RF: 0 ergocalciferol (vitamin D2) 50,000 unit Capsule 50,000 unit PO Q7D RF: 0 finasteride 5 mg Tablet 5 mg PO DAILY RF: 0 prednisolone 5 mg Tablet 20 mg PO DAILY RF: 0 potassium chloride 20 mEq Tablet Extended Release 20 meq PO DAILY RF: 0 testosterone 1.62 % (20.25 mg/1.25 gram) Gel In Packet 2 packet TRANSDERMAL DAILY RF: 0 midodrine 5 mg Tablet 5 mg PO DAILY RF: 0 fludrocortisone 0.1 mg Tablet 0.1 mg PO DAILY RF: 0 mycophenolate sodium 360 mg Tablet,Delayed Release (Dr/Ec) 360 mg PO BID RF: 0 Discharge Orders: Discharge ED (Routine); Ordered 03/20/20 Ordered By: Robinson Alanis Referrals: Dakota Taveras MD [Physician] - Discharge Diet: Usual diet Discharge Activity: Resume usual activity Activity Restrictions/Additional Instructions: Strain urine if you collect the stone please save for analysis in the lab. Case management will call to have you see Dr. Taveras on Monday. Monday evening March 22 you should take 1 bottle of mag citrate to clear your colon to assist with procedures to remove the stone the following day. Take this no later than noon on March 22. If pain is uncontrollable return. Do not eat or drink anything after midnight on Monday evening. Coding Level of Care Code ED Testing Coordinator for Jaky Fwd Exam Comprehensive
[2020-03-20 07:39] VITALS: BP 154/96; PULSE 70; RESP 18; O2SAT 93
--- NOTE | 2020-03-20 07:42 | CT_ITS ---
WS: [id number] CT ABDOMEN AND PELVIS NONCONTRAST HISTORY: flank pain TECHNIQUE: Imaging performed through the abdomen and pelvis. Coronal and sagittal reformats are submi tted. All CT scans at [facility] use at least one of these dose optimization techniques: automated exposure control; mA and/or kV adjustment per patient size (includes targeted exams where d ose is matched to clinical indication); or iterative reconstruction. DLP: 2229.32 mGy.cm COMPARISON: 07/19/2019 Lower thorax: New atelectasis at the RIGHT lung base. Liver: Marked decreased attenuation throughout the liver from hepatic steatosis. No bile duct dilatat ion. Gallbladder: Not visualized. Patient did not provide a history of prior cholecystectomy. Pancreas: Mild inflammation surrounding the pancreas, predominantly around the head and body. No bile duct or pancreatic duct dilatation. Spleen: Spleen is slightly enlarged at 14 cm in length with no change. Adrenal glands: Normal. No mass. Right kidney: Mild atrophy of the RIGHT kidney. Mild perinephric stranding. 6 mm calcification at the RIGHT renal pelvis is new. There is an additional kidney in the RIGHT pelvis. Transplant kidney appe ars normal with no obstruction or adjacent fluid collection. Left kidney: Mild atrophy of the LEFT kidney mild perinephric stranding. There are numerous calcifica tions in the renal pelvis. The largest measures 7 mm and nonobstructing. There is mild dilatation of the renal pelvis and LEFT ureter secondary to several calcifications in the distal ureter. There are at least 3 calcifications identified causing the obstruction at the UV junction. Aorta: Mild atherosclerosis aorta. Calcified lymph nodes in the retroperitoneum. No enlarging lymph nodes. GI tract: Revision of an ostomy in the RIGHT abdomen since the prior study. Mild fluid distention of the colon. No obstruction at the anastomotic site. Abdominal wall: No hernia. Postoperative changes on the RIGHT from the ostomy site. Pelvis: RIGHT pelvic kidney is again identified. Urinary bladder is minimally distended. There are ex tensive calcifications in the soft tissues over the RIGHT hip which may be from prior trauma. Osseous structures: No osteoblastic or osteolytic disease. Benign bone island RIGHT ilium. CT/CT kidney stone [id number] IMPRESSION: 1. There are at least 3 calcifications in the distal LEFT ureter causing a naila y mild hydroureteronephrosis. Largest calcification measures 5 mm. 2. Additional nonobstructing calcifications in each kidney. New calcification at the RIGHT UV junction not causing obstruction. 3. Transplant kidney in the RIGHT pelvis. 4. Very mild inflammatory changes in the central mesentery and adjacent to the pancreas. This may be due to mild acute developing pancreatitis or mesenteric panniculitis.
[2020-03-20 08:29] LABS: Add Urine Microscopic? YES; Bilirubin Urine Neg (Negative); Blood Urine 2+ (Negative); Glucose Urine UA Trace (Normal); Ketones Urine Negative (Negative); Leukocyte Esterase Urine Negative (Negative); Nitrate Urine Negative (Negative); Protein Urine Neg (Negative); Urine Appearance Clear (CLEAR); Urine Color Yellow (Yellow); Urobilinogen Urine Norm (Negative)
[2020-03-20 08:35] LABS: Add Urine Culture? No; Bacteria Urine TRACE /hpf; Squamous Epithelial Cell Urine 0-4 /hpf (0-5)
[2020-03-20 08:50] VITALS: RESP 18; O2SAT 98
[2020-03-20 09:30] VITALS: BP 138/67; PULSE 78; RESP 18; O2SAT 97
--- NOTE | 2020-03-20 10:58 | DCPLANNER ---
manager transportation was asked to schedule a follow up appointment for patient with Dr. Taveras. manager transportation called the office of Dr. Taveras, spoke with Ava, gave clinic patients information. manager transportation was told that patients information would be printed and reviewed. Clinic will call patient with appointment information. Patient has [facility] insurance, correctional case records supervisor called June with [facility] and informed the VA that a consult would need to be placed so that the clinic can get an authorization. manager transportation emailed patients information to the [facility] for the authorization to be placed.
[2020-03-21 17:44] LABS: Coronavirus Test Green County Not Detected
--- NOTE | 2020-03-24 09:06 | DCPLANNER ---
Patient had a follow up appointment scheduled for 03.23.[address] Taveras - patient did attend appointment.
== END 2020-03-20 09:33 | disposition home or self-care (01) ==
PROVIDERS: Emergency Provider Family Medicine; PCP Family Medicine
DX: N20.0 Calculus of kidney (principal); Z79.82 Long term (current) use of aspirin
CPT/HCPCS: 12345; 74018; 74176; 80053; 81001; 85025; 87635; 96374; 96375; 96376; 99282; 99283; J2270; J2405

== ENCOUNTER 2020-03-23 08:20 | Outpatient (CLI) | payer OTHER, SELFPAY ==
--- NOTE | 2020-03-23 08:29 | XRR_ITS ---
PROCEDURE INFORMATION: Exam: XR Abdomen, 1 View Exam date and time: 03/23/2020 8:37 AM Age: 54 years old Clinical indication: Condition or disease; Kidney or ureter condition; Calculus (stone) in kidney; Prior surgery; Surgery type: Colon, liver, kidney; Patient HX: Left sided back pain; Additional info: Stones TECHNIQUE: Imaging protocol: XR of the abdomen. Views: Frontal supine view of the abdomen. 1 View. COMPARISON: CT kidney stone [id number] 03/20/2020 7:53 AM FINDINGS: Gastrointestinal tract: See Organs finding. Organs: The distal left ureteral calculi there are seen on the recent CT scan are not identified on this radiograph of the abdomen. Bilateral renal calcifications are also difficult to see due to overlying bowel gas. There are multiple benign calcified retroperitoneal lymph nodes. There are surgical sutures from bowel anastomosis in the right side of the abdomen. Bones/joints: Unremarkable. XR/XR KUB [id number] IMPRESSION: The urinary calcifications seen on recent CT scan not identified. No acute abnormalities are seen in the abdomen.
== END 2020-03-23 08:21 | disposition home or self-care (01) ==
PROVIDERS: PCP Family Medicine; Visit Provider Urology
DX: N20.0 Calculus of kidney (principal)
CPT/HCPCS: 74018; 81003; 87086

== ENCOUNTER 2020-03-27 08:23 | Outpatient (CLI) | payer OTHER, SELFPAY ==
--- NOTE | 2020-03-27 08:00 | XR_ITS ---
WS: [id number] KUB, 03/27/2020 Clinical Data: stones Comparison: KUB, 03/23/2020. Findings: No abnormal intraabdominal masses or calcifications are seen. There is no dilatated small bowel or ev idence of obstruction. There are dense lymph nodes in the left side of the lumbar spine which may be calcified or perhaps co ntain lipiodol from a lymphangiogram. There are opacities in the subcutaneous tissue overlying the ri ght hip which may be from an injection. There are also opacities overlying the lower thoracic vertebr al bodies possibly from a injection and they may be within lymph nodes or lymphatics. There are clips and will in the right side of the abdomen from surgery. XR/XR KUB [id number] Impression: 1. Negative for renal or ureteral calculi. 2. Calcifications and/or injection material from previous procedures overlying the right hip, lumbar spine and lower thoracic spine.
== END 2020-03-27 08:24 | disposition home or self-care (01) ==
PROVIDERS: PCP Family Medicine; Visit Provider Urology
DX: N20.9 Urinary calculus, unspecified (principal)
CPT/HCPCS: 74018; 82365; 88300

== ENCOUNTER → 2020-04-20 10:33 | Outpatient (BNVA) | payer OTHER, SELFPAY | PROVIDERS: PCP Family Medicine; Visit Provider Urology | DX: N20.1 Calculus of ureter (principal) | CPT/HCPCS: 80048; 81003; 82131; 82140; 82340; 82436; 82507; 82570; 83735; 83935; 84100; 84300; 84550 ==

== ENCOUNTER → 2020-06-12 11:12 | Outpatient (BNVA) | payer OTHER, SELFPAY | PROVIDERS: PCP Family Medicine; Visit Provider Internal Medicine | DX: E11.40 Type 2 diabetes mellitus with diabetic neuropathy, unspecified (principal); E11.65 Type 2 diabetes mellitus with hyperglycemia; Z94.4 Liver transplant status; Z94.0 Kidney transplant status | CPT/HCPCS: 99204 ==

== ENCOUNTER 2020-07-20 19:31 | Emergency (ER) | payer OTHER, SELFPAY ==
[2020-07-20 20:18] VITALS: BP 154/88; PULSE 64; RESP 16; TEMP 36.7; O2SAT 97; BMI 30.5
--- NOTE | 2020-07-20 20:42 | XRR_ITS ---
PROCEDURE INFORMATION: Exam: XR Chest Exam date and time: 07/20/2020 9:05 PM Age: 55 years old Clinical indication: Shortness of breath; Additional info: Reduced breath sounds TECHNIQUE: Imaging protocol: XR of the chest. Views: 1 view. Total images: 1 COMPARISON: CR Chest 1 [place] [id number] 09/18/2018 5:05 PM FINDINGS: Lungs: No visible active interstitial or alveolar airspace disease. Pleural spaces: Unremarkable. No pleural effusion. No pneumothorax. Heart/Mediastinum: Unremarkable. No cardiomegaly. Bones/joints: Old left rib fractures. XR/XR chest 1V portable [id number] IMPRESSION: Nonacute.
--- NOTE | 2020-07-20 20:44 | ECG_ITS ---
[facility] Test Date: 2020-07-20 Pat Name: Neno Mullins Department: Room: Gender: Male Signals Analyst: : 1965 Requested By: Kristian Steele Order Number: [id number] Griffin MD: Michelle Dempsey M.D. Measurements Intervals [place] Rate: 64 P: 24 VT: 156 QRS: -22 QRSD: 90 T: 36 QT: 402 QTc: 417 Interpretive Statements SINUS RHYTHM BORDERLINE LEFT AXIS DEVIATION [QRS AXIS < -20] POSSIBLE LEFT VENTRICULAR HYPERTROPHY [VOLTAGE CRITERIA PLUS LAE OR QRS WIDENING] Compared to ECG 09/18/2018 22:10:25 No significant changes Electronically Signed On 07-21-2020 9:20:56 CDT by Michelle Dempsey M.D. [id number]
[2020-07-20 20:49] LABS: Basophils % 0.1 %; Eosinophils % 0.1 %; Hematocrit 41.7 % (42.0-52.0); Hemoglobin 12.9 g/dL (11.7-16.6); Lymphocytes # 0.6 10^3/uL (0.8-4.8); Lymphocytes % 6.8 %; Mean Corpuscular HGB Conc 30.9 g/dL (30.0-36.0); Mean Corpuscular Hemoglobin 27.2 pg (28.0-34.0); Mean Platelet Volume 12.1 fL (7.4-10.4); Monocytes # 0.3 10^3/uL (0.2-0.9); Neutrophils # 7.28 10^3/uL (1.8-7.7); Neutrophils % 88.5 %; Nucleated Red Blood Cells % 0 %; Platelet Count 178 10^3/cmm (130-400); Red Blood Count 4.74 10^6/uL (4.1-5.3); Red Cell Distribution Width 15.3 % (12.1-15.1); White Blood Count 8.2 10^3/uL (4.0-10.0)
[2020-07-20 20:51] LABS: Glucose Point of Care 481 mg/dL (70-110)
[2020-07-20 20:59] LABS: ABG PCO2 35.3 mmHg (35-45); Arterial Blood Gas Hematocrit 38.8 % (42-52); Base Excess ABG -2.3 mmol/L (-2.0-2.0); Blood Gas Sample Site Brachial, left; Blood Gas Sample Type Arterial; Carboxyhemoglobin < 0.0 %THgb (0.4-20.1); HGB O2 Sat 94.6 % (95-100); Methemoglobin 0.9 % (0.4-1.5); Oxygen Device ROOM AIR; PO2 ABG 90.9 mmHg (80.0-100.0); Total Hemoglobin 12.7 g/dL (14-18)
[2020-07-20 21:06] LABS: Alanine Aminotransferase 382 U/L (0-41); Albumin Level 4.8 g/dL (3.5-5.2); Alkaline Phosphatase 317 IU/L (40-130); Aspartate Amino Transferase 86 U/L (0-40); Blood Urea Nitrogen 25 mg/dL (6-20); Calcium 9.7 mg/dL (8.5-10.5); Carbon Dioxide 24 mmol/L (22-29); Chloride 91 mmol/L (98-107); Globulin 2.8 g/dL (1.3-4.6); Glomerular Filtration Rate 57.1 mL/min (90-130); Osmolality Calculated 290 mOsm/kg (285-295); Sodium 126 mmol/L (136-145); Total Bilirubin 0.9 mg/dL (0.15-1.2); Total Protein 7.6 g/dL (6.6-8.7)
[2020-07-20 21:07] LABS: Glucose 521 mg/dL (65-115)
[2020-07-20 21:08] LABS: Troponin(5th) Baseline 22 ng/L (0-15)
[2020-07-20] MEDS: insulin regular-human 100 units/1 mL 10 UNIT IVP (21:16)
[2020-07-20] MEDS: sodium chloride 0.9% 1,000 ML 999 ML IV (21:20)
[2020-07-20 21:48] VITALS: BP 161/89; RESP 16; O2SAT 100
--- NOTE | 2020-07-20 22:04 | ED_ITS ---
HPI - General Adult General: Chief complaint: General Medical Stated complaint: vasquez ref/high blood sugar Time Seen by Provider: 07/20/20 20:32 History of Present Illness: HPI narrative: The patient comes to the ER after he was told to by his primary care doctor after he got a glucose reading of high on his glucometer. He admits to increased thirst and urination. He has type 2 diabetes and was recently discharged from [facility] approximately 4 days ago. He has a history of kidney and liver transplant related to [place] water poisoning he says. He was seen at [facility] related to his transplants and placed on prednisone 40 mg twice daily for 2 weeks. He denies nausea, vomiting, diarrhea, abdominal pain, chest pain, shortness of breath. Severity: moderate Associated symptoms: Reports no associated symptoms; Deny chest pain, confusion, dyspnea, headache(s), rash or palpitations Review of Systems General: Reports: 10 or more systems reviewed and unremarkable except in HPI and below Const: Denies: fatigue Eyes: Denies: change in vision, blurry vision or eye redness ENMT: Denies: throat pain, swelling of lips/tongue, ear or mastoid pain or nasal congestion Card: Denies: chest pain, palpitations, irregular heart rhythm, edema, dyspnea on exertion or orthopnea Resp: Denies: dyspnea, productive cough or non-productive cough GI: Denies: abdominal pain, diarrhea or GI cramping : Denies: flank pain, urinary frequency or urinary urgency Musc: Denies: neck pain, back pain, extremity pain, joint pain, joint redness, limited range of motion or muscle weakness Skin/Breast: Denies: rash, pruritus, erythema, skin pain or skin tenderness Neuro: Denies: headache(s), numbness in extremities, weakness in extremities, sensory changes, difficulty walking, dizziness, confusion or Slurred speech present Psych: Denies: anxiety or depression Endo: Reports: polyuria and polydipsia All/Imm: Denies: urticaria, throat swelling or tongue swelling PFSH ED PFSH: Medical History Bilateral renal stones Colostomy in place H/O Crohn's disease Left nephrolithiasis Surgical History H/O colostomy reversal Kidney transplant recipient Liver transplant recipient Family History Father , at age 65 Murder Social History Smoking and tobacco status: never smoked Alcohol intake: current Alcohol intake frequency: holidays/special occasions only Marital status: Current occupational status: disabled History of recent travel: No Physical Exam Const: COMMON NORMALS: no acute distress, average body habitus, patient oriented x3, no limitations, healthy appearing, alert and well nourished GENERAL APPEARANCE: cooperative, comfortable, well kempt and well developed ORIENTATION/CONSCIOUSNESS: Yes awake, Yes oriented to person, Yes oriented to place and Yes oriented to time HENMT: COMMON NORMALS: normocephalic, external ears normal and Normal external nose present HEAD & SCALP: normal to inspection and normocephalic NOSE: Normal external nose present EXTERNAL EAR: Yes external ears normal MOUTH: Normal oral and palatal mucosa present THROAT: posterior oropharynx normal Eye: COMMON NORMALS: Equal, round and reactive pupils present and EOMs intact bilaterally GENERAL EYE: appearance normal, both eyes and all related structures PUPIL: Yes Equal, round and reactive pupils present Neck/C-Spine: COMMON NORMALS: full ROM, no lymphadenopathy, no meningeal signs and no JVD GENERAL: Yes normal visual inspection Lymph: LYMPHATIC: no lymphadenopathy noted Chest: COMMONS NORMALS: normal inspection of the chest and normal palpation of entire chest wall Resp: COMMON NORMALS: normal respiratory effort, No retractions, No use of accessory muscles, clear to auscultation bilaterally and percussion normal EFFORT & INSPECTION: Yes able to speak in complete sentences AUSCULTATION: clear to auscultation bilaterally PERCUSSION: percussion normal Cardio: COMMON NORMALS: no JVD, regular rate, regular rhythm, S1 normal heart sound present, S2 normal heart sound present and Peripheral pulses 2+ throughout RATE: regular rate RHYTHM: regular rhythm HEART SOUNDS: S1 normal heart sound present and S2 normal heart sound present PERIPHERAL PULSES: Peripheral pulses 2+ throughout GI: COMMON NORMALS: Normal to inspection, nondistended, normoactive bowel sounds present, Soft to palpation, non-tender and no masses INSPECTION: Yes normal to inspection PALPATION: Yes Soft to palpation : COMMON NORMALS: Yes no CVA tenderness BLADDER/KIDNEY EXAM: Yes no CVA tenderness Back/Pelvis: COMMON NORMALS: no CVA tenderness, thoracic and lumbar spine normal to inspection, no thoracic nor lumbar tenderness and thoraco-lumbar ROM normal Extremity: COMMON NORMALS: normal to inspection, full ROM, capillary refill normal, no joint enlargement and no pedal edema GENERAL: Yes normal exam except as noted Neuro: COMMON NORMALS: patient oriented x3, CN's II-XII intact bilaterally, moves all extremities, no focal motor deficits, no sensory deficits noted and gait normal SENSORIUM/ORIENTATION: Yes alert, Yes oriented to person, Yes oriented to place and Yes oriented to time MENINGEAL SIGNS: Yes no meningeal signs Psych: COMMON NORMALS: mental status grossly normal, Normal thought process present, cooperative, normal affect and speech normal APPEARANCE: Yes well kempt ATTITUDE: Yes calm SPEECH: Yes normal speech THOUGHT PROCESS: Normal thought process present Skin: COMMON NORMALS: no rashes or lesions noted GENERAL SKIN EXAM: no rashes or lesions noted Course Vital Signs: Vital signs: Vital Signs Temperature 98.1 F 07/20/20 20:18 Pulse Rate 86 07/20/20 23:56 Respiratory Rate 16 07/20/20 23:56 Blood Pressure 149/91 07/20/20 23:56 Pulse Oximetry 97 07/20/20 23:56 MDM - General Adult MDM Narrative: Medical decision making narrative: The patient is a 55-year-old male diabetic on only 20 units of Lantus and he was recently started on prednisone 40 mg twice a day for rejection of his liver and kidneys from [facility]. He called them today and they told him to go to the ER after his glucometer read high. He was given 10 units IV then 20 units subcutaneous for continued hyperglycemia. Also has acute kidney injury and he was given a liter of fluids. pH normal. He was requesting discharge however I felt he needed admission for continued glucose control as he just started the prednisone and it is clearly not under control. He requested to sign out AMA. I discussed with him that he has acute kidney injury and still has hyperglycemia and will likely be 500 glucose again by breakfast time. I discussed that these could worsen and cause him to have kidney failure, DKA, and even . He understands and accepts those risks and signed AMA and left on his own free will. Lab Data: Labs: Lab Results 07/20/20 07/20/20 07/20/20 Range/Units 20:20 20:43 20:43 WBC 8.2 (4.0-10.0) 10^3/ uL RBC 4.74 (4.1-5.3) 10^6/u L Hgb 12.9 (11.7-16.6) g/dL Hct 41.7 L (42.0-52.0) % MCV 88.0 (80-94) fL MCH 27.2 L (28.0-34.0) pg MCHC 30.9 (30.0-36.0) g/dL RDW 15.3 H (12.1-15.1) % Plt Count 178 (130-400) 10^3/c mm MPV 12.1 H (7.4-10.4) fL Neut % (Auto) 88.5 % Lymph % (Auto) 6.8 % [place] % (Auto) 4.0 % Eos % (Auto) 0.1 % Baso % (Auto) 0.1 % Neut # (Auto) 7.28 (1.8-7.7) 10^3/u L Lymph # (Auto) 0.6 L (0.8-4.8) 10^3/u L [place] # (Auto) 0.3 (0.2-0.9) 10^3/u L Eos # (Auto) 0.0 (0.0-0.8) 10^3/u L Baso # (Auto) 0.0 (0.0-0.1) 10^3/u L Nucleated RBC % (a uto) 0 % Nucleated RBCs # 0.0 /100WBC Specimen Type Sample Site ABG pH (7.35-7.45) ABG pCO2 (35-45) mmHg ABG pO2 (80.0-100.0) mmH g ABG HCO3 (22-26) mmol/L ABG Base Excess (-2.0-2.0) mmol/ L Oleg Test Hematocrit (42-52) % Hgb O2 Saturation (95-100) % Carboxyhemoglobin (0.4-20.1) %THgb Methemoglobin (0.4-1.5) % Total Hemoglobin (14-18) g/dL O2 Delivery Device FiO2 % Entry Level Manager ID Sodium 126 L (136-145) mmol/L Potassium 5.0 (3.5-5.1) mmol/L Chloride 91 L (98-107) mmol/L Carbon Dioxide 24 (22-29) mmol/L Anion Gap 16.0 (5-19) BUN 25 H (6-20) mg/dL Creatinine 1.3 H (0.7-1.2) mg/dL GFR Calculation 57.1 L (90-130) mL/min Glucose 521 H* (65-115) mg/dL POC Glucose 481 H (70-110) mg/dL Calculated Osmolal ity 290 (285-295) mOsm/k g Lactate (0.5-2.2) mmol/L Calcium 9.7 (8.5-10.5) mg/dL Total Bilirubin 0.9 (0.15-1.2) mg/dL AST 86 H (0-40) U/L ALT 382 H (0-41) U/L Alkaline Phosphata se 317 H (40-130) IU/L Troponin T Baselin e (0-15) ng/L Troponin T 120 Min chanda (0-15) ng/L Delta Troponin T (0-10) ABS# Total Protein 7.6 (6.6-8.7) g/dL Albumin 4.8 (3.5-5.2) g/dL Globulin 2.8 (1.3-4.6) g/dL Urine Color (Yellow) Urine Appearance (CLEAR) Urine pH (5-7) Ur Specific Gravit y (1.005-1.030) Urine Protein (Negative) Urine Glucose (UA) (Normal) Urine Ketones (Negative) Urine Blood (Negative) Urine Nitrate (Negative) Urine Bilirubin (Negative) Urine Urobilinogen (Negative) mg/dL Ur Leukocyte Lindasy ase (Negative) Urine RBC (0-2) /hpf Urine WBC (0-5) /hpf Ur Squamous Epith Cells (0-5) /hpf Amorphous Sediment Urine Bacteria (NONE) /hpf 07/20/20 07/20/20 07/20/20 Range/Units 20:43 20:43 20:47 WBC (4.0-10.0) 10^3/ uL RBC (4.1-5.3) 10^6/u L Hgb (11.7-16.6) g/dL Hct (42.0-52.0) % MCV (80-94) fL MCH (28.0-34.0) pg MCHC (30.0-36.0) g/dL RDW (12.1-15.1) % Plt Count (130-400) 10^3/c mm MPV (7.4-10.4) fL Neut % (Auto) % Lymph % (Auto) % [place] % (Auto) % Eos % (Auto) % Baso % (Auto) % Neut # (Auto) (1.8-7.7) 10^3/u L Lymph # (Auto) (0.8-4.8) 10^3/u L [place] # (Auto) (0.2-0.9) 10^3/u L Eos # (Auto) (0.0-0.8) 10^3/u L Baso # (Auto) (0.0-0.1) 10^3/u L Nucleated RBC % (a uto) % Nucleated RBCs # /100WBC Specimen Type Arterial Sample Site Brachial, left ABG pH 7.40 (7.35-7.45) ABG pCO2 35.3 (35-45) mmHg ABG pO2 90.9 (80.0-100.0) mmH g ABG HCO3 22.0 (22-26) mmol/L ABG Base Excess -2.3 L (-2.0-2.0) mmol/ L Oleg Test N/a Hematocrit 38.8 L (42-52) % Hgb O2 Saturation 94.6 L (95-100) % Carboxyhemoglobin < 0.0 L (0.4-20.1) %THgb Methemoglobin 0.9 (0.4-1.5) % Total Hemoglobin 12.7 L (14-18) g/dL O2 Delivery Device Room air FiO2 21.0 % Entry Level Manager ID Jlg Sodium (136-145) mmol/L Potassium (3.5-5.1) mmol/L Chloride (98-107) mmol/L Carbon Dioxide (22-29) mmol/L Anion Gap (5-19) BUN (6-20) mg/dL Creatinine (0.7-1.2) mg/dL GFR Calculation (90-130) mL/min Glucose (65-115) mg/dL POC Glucose (70-110) mg/dL Calculated Osmolal ity (285-295) mOsm/k g Lactate 2.0 (0.5-2.2) mmol/L Calcium (8.5-10.5) mg/dL Total Bilirubin (0.15-1.2) mg/dL AST (0-40) U/L ALT (0-41) U/L Alkaline Phosphata se (40-130) IU/L Troponin T Baselin e 22 H (0-15) ng/L Troponin T 120 Min chanda (0-15) ng/L Delta Troponin T (0-10) ABS# Total Protein (6.6-8.7) g/dL Albumin (3.5-5.2) g/dL Globulin (1.3-4.6) g/dL Urine Color (Yellow) Urine Appearance (CLEAR) Urine pH (5-7) Ur Specific Gravit y (1.005-1.030) Urine Protein (Negative) Urine Glucose (UA) (Normal) Urine Ketones (Negative) Urine Blood (Negative) Urine Nitrate (Negative) Urine Bilirubin (Negative) Urine Urobilinogen (Negative) mg/dL Ur Leukocyte Lindsay ase (Negative) Urine RBC (0-2) /hpf Urine WBC (0-5) /hpf Ur Squamous Epith Cells (0-5) /hpf Amorphous Sediment Urine Bacteria (NONE) /hpf 07/20/20 07/20/20 07/20/20 Range/Units 22:13 22:19 22:48 WBC (4.0-10.0) 10^3/ uL RBC (4.1-5.3) 10^6/u L Hgb (11.7-16.6) g/dL Hct (42.0-52.0) % MCV (80-94) fL MCH (28.0-34.0) pg MCHC (30.0-36.0) g/dL RDW (12.1-15.1) % Plt Count (130-400) 10^3/c mm MPV (7.4-10.4) fL Neut % (Auto) % Lymph % (Auto) % [place] % (Auto) % Eos % (Auto) % Baso % (Auto) % Neut # (Auto) (1.8-7.7) 10^3/u L Lymph # (Auto) (0.8-4.8) 10^3/u L [place] # (Auto) (0.2-0.9) 10^3/u L Eos # (Auto) (0.0-0.8) 10^3/u L Baso # (Auto) (0.0-0.1) 10^3/u L Nucleated RBC % (a uto) % Nucleated RBCs # /100WBC Specimen Type Sample Site ABG pH (7.35-7.45) ABG pCO2 (35-45) mmHg ABG pO2 (80.0-100.0) mmH g ABG HCO3 (22-26) mmol/L ABG Base Excess (-2.0-2.0) mmol/ L Oleg Test Hematocrit (42-52) % Hgb O2 Saturation (95-100) % Carboxyhemoglobin (0.4-20.1) %THgb Methemoglobin (0.4-1.5) % Total Hemoglobin (14-18) g/dL O2 Delivery Device FiO2 % Entry Level Manager ID Sodium (136-145) mmol/L Potassium (3.5-5.1) mmol/L Chloride (98-107) mmol/L Carbon Dioxide (22-29) mmol/L Anion Gap (5-19) BUN (6-20) mg/dL Creatinine (0.7-1.2) mg/dL GFR Calculation (90-130) mL/min Glucose (65-115) mg/dL POC Glucose 496 H (70-110) mg/dL Calculated Osmolal ity (285-295) mOsm/k g Lactate (0.5-2.2) mmol/L Calcium (8.5-10.5) mg/dL Total Bilirubin (0.15-1.2) mg/dL AST (0-40) U/L ALT (0-41) U/L Alkaline Phosphata se (40-130) IU/L Troponin T Baselin e (0-15) ng/L Troponin T 120 Min chanda 26.30 H (0-15) ng/L Delta Troponin T 4.30 (0-10) ABS# Total Protein (6.6-8.7) g/dL Albumin (3.5-5.2) g/dL Globulin (1.3-4.6) g/dL Urine Color Yellow (Yellow) Urine Appearance Clear (CLEAR) Urine pH 5 (5-7) Ur Specific Gravit y 1.010 (1.005-1.030) Urine Protein Neg (Negative) Urine Glucose (UA) 4+ H (Normal) Urine Ketones Negative (Negative) Urine Blood Trace H (Negative) Urine Nitrate Negative (Negative) Urine Bilirubin Neg (Negative) Urine Urobilinogen Norm (Negative) mg/dL Ur Leukocyte Lindsay ase Negative (Negative) Urine RBC 5-10 H (0-2) /hpf Urine WBC 0-4 H (0-5) /hpf Ur Squamous Epith Cells 0-4 H (0-5) /hpf Amorphous Sediment Not Reportable Urine Bacteria Trace (NONE) /hpf 07/20/20 Range/Units 23:31 WBC (4.0-10.0) 10^3/ uL RBC (4.1-5.3) 10^6/u L Hgb (11.7-16.6) g/dL Hct (42.0-52.0) % MCV (80-94) fL MCH (28.0-34.0) pg MCHC (30.0-36.0) g/dL RDW (12.1-15.1) % Plt Count (130-400) 10^3/c mm MPV (7.4-10.4) fL Neut % (Auto) % Lymph % (Auto) % [place] % (Auto) % Eos % (Auto) % Baso % (Auto) % Neut # (Auto) (1.8-7.7) 10^3/u L Lymph # (Auto) (0.8-4.8) 10^3/u L [place] # (Auto) (0.2-0.9) 10^3/u L Eos # (Auto) (0.0-0.8) 10^3/u L Baso # (Auto) (0.0-0.1) 10^3/u L Nucleated RBC % (a uto) % Nucleated RBCs # /100WBC Specimen Type Sample Site ABG pH (7.35-7.45) ABG pCO2 (35-45) mmHg ABG pO2 (80.0-100.0) mmH g ABG HCO3 (22-26) mmol/L ABG Base Excess (-2.0-2.0) mmol/ L Oleg Test Hematocrit (42-52) % Hgb O2 Saturation (95-100) % Carboxyhemoglobin (0.4-20.1) %THgb Methemoglobin (0.4-1.5) % Total Hemoglobin (14-18) g/dL O2 Delivery Device FiO2 % Entry Level Manager ID Sodium (136-145) mmol/L Potassium (3.5-5.1) mmol/L Chloride (98-107) mmol/L Carbon Dioxide (22-29) mmol/L Anion Gap (5-19) BUN (6-20) mg/dL Creatinine (0.7-1.2) mg/dL GFR Calculation (90-130) mL/min Glucose (65-115) mg/dL POC Glucose 398 H (70-110) mg/dL Calculated Osmolal ity (285-295) mOsm/k g Lactate (0.5-2.2) mmol/L Calcium (8.5-10.5) mg/dL Total Bilirubin (0.15-1.2) mg/dL AST (0-40) U/L ALT (0-41) U/L Alkaline Phosphata se (40-130) IU/L Troponin T Baselin e (0-15) ng/L Troponin T 120 Min chanda (0-15) ng/L Delta Troponin T (0-10) ABS# Total Protein (6.6-8.7) g/dL Albumin (3.5-5.2) g/dL Globulin (1.3-4.6) g/dL Urine Color (Yellow) Urine Appearance (CLEAR) Urine pH (5-7) Ur Specific Gravit y (1.005-1.030) Urine Protein (Negative) Urine Glucose (UA) (Normal) Urine Ketones (Negative) Urine Blood (Negative) Urine Nitrate (Negative) Urine Bilirubin (Negative) Urine Urobilinogen (Negative) mg/dL Ur Leukocyte Lindsay ase (Negative) Urine RBC (0-2) /hpf Urine WBC (0-5) /hpf Ur Squamous Epith Cells (0-5) /hpf Amorphous Sediment Urine Bacteria (NONE) /hpf Discharge Plan Discharge Patient Disposition: Left Against Medical Advice Clinical Impression: Diabetes type 2, uncontrolled, Acute kidney injury Prescriptions: No Action sildenafil 100 mg tablet 100 mg PO DAILY RF: 0 calcium carbonate [Calcium 500] 500 mg calcium (1,250 mg) tablet 500 mg PO BID RF: 0 ergocalciferol (vitamin D2) 1,250 mcg (50,000 unit) capsule 50,000 unit PO Q7D RF: 0 benifiber powder 2 tsp PO BID Qty: 1 RF: 0 hydrocodone-acetaminophen 5-325 mg tablet 1 tab PO Q6H PRN (Reason: pain) Qty: 25 RF: 0 Zofran 4 mg tablet 4 mg PO Q6H PRN (Reason: nausea and vomiting) Qty: 20 RF: 0 magnesium oxide [MagOx] 400 mg (241.3 mg magnesium) Tablet 800 mg PO DAILY RF: 0 aspirin 81 mg Tablet,Chewable 81 mg PO DAILY RF: 0 finasteride 5 mg Tablet 5 mg PO DAILY RF: 0 tacrolimus 5 mg capsule 3 mg PO BID RF: 0 prednisolone 5 mg tablet 5 mg PO DAILY RF: 0 gabapentin 100 mg capsule 300 mg PO BID RF: 0 levothyroxine 50 mcg tablet 50 mcg PO DAILY RF: 0 loperamide 2 mg capsule 6 mg PO TID RF: 0 tamsulosin 0.4 mg capsule 0.8 mg PO DAILY RF: 0 Referrals: Kvng Dexter DO [Primary Care Provider] - Coding Level of Care Code ED Steel Finisher for Chg Fwd Exam Comprehensive
[2020-07-20 22:13] VITALS: BP 146/91; RESP 18; O2SAT 99
[2020-07-20 22:17] LABS: Glucose Point of Care 496 mg/dL (70-110)
[2020-07-20 22:33] LABS: Add Urine Microscopic? YES; Bacteria Urine TRACE /hpf; Bilirubin Urine Neg (Negative); Blood Urine Trace (Negative); Glucose Urine UA 4+ (Normal); Ketones Urine Negative (Negative); Leukocyte Esterase Urine Negative (Negative); Nitrate Urine Negative (Negative); Protein Urine Neg (Negative); Squamous Epithelial Cell Urine 0-4 /hpf (0-5); Urine Appearance Clear (CLEAR); Urine Color Yellow (Yellow); Urobilinogen Urine Norm (Negative); WBC Urine 0-4 /hpf (0-5); pH Urine 5 (5-7)
--- NOTE | 2020-07-20 22:44 | ECG_ITS ---
[facility] Test Date: 2020-07-20 Pat Name: Neno Mullins Department: Room: Gender: Male Minute Clerk: : 1965 Requested By: Kristian Steele Order Number: [id number] Elias MD: Monty Caballero M.D. Measurements Intervals [place] Rate: 65 P: 22 [place]: 158 QRS: -20 QRSD: 94 T: 33 QT: 412 QTc: 430 Interpretive Statements SINUS RHYTHM MODERATE VOLTAGE CRITERIA FOR LVH, CONSIDER NORMAL VARIANT [MEETS CRITERIA IN ONE OF: R(aVL), S(V1), R(V5), R(V5/V6)+S(V1)] POSSIBLE SEPTAL MYOCARDIAL INFARCTION , OF INDETERMINATE AGE [30 ms Q WAVE IN V1/V2] Compared to ECG 07/20/2020 21:02:26 Myocardial infarct finding now present Electronically Signed On 07-21-2020 19:24:48 CDT by Monty Caballero M.D. [email or web address].LRN/store/OM/[id number]
[2020-07-20 23:34] LABS: Glucose Point of Care 398 mg/dL (70-110)
[2020-07-20 23:56] VITALS: BP 149/91; PULSE 86; RESP 16; O2SAT 97
== END 2020-07-20 23:57 | disposition left against medical advice (07) ==
PROVIDERS: Emergency Medicine; Emergency Provider Family Medicine; PCP Emergency Medicine Emergency Medical Services
DX: E11.9 Type 2 diabetes mellitus without complications (principal); N17.9 Acute kidney failure, unspecified; Z79.82 Long term (current) use of aspirin; Z53.21 Procedure and treatment not carried out due to patient leaving prior to being seen by health care provider
CPT/HCPCS: 36416; 36600; 71045; 80053; 81001; 82805; 82962; 83605; 84484; 85025; 93005; 96360; 96372; 99283; J1815; J7030

== ENCOUNTER 2020-08-03 23:29 | Emergency (ER) | payer OTHER, SELFPAY ==
[2020-08-03 23:58] VITALS: BP 139/83; PULSE 80; RESP 16; TEMP 36.4; O2SAT 95; BMI 32.5
[2020-08-04 00:43] VITALS: BP 161/91; PULSE 66; RESP 18; O2SAT 97
[2020-08-04 01:01] LABS: Basophils % 0.1 %; Hematocrit 34.4 % (42.0-52.0); Hemoglobin 11.4 g/dL (11.7-16.6); Lymphocytes # 0.5 10^3/uL (0.8-4.8); Lymphocytes % 6.3 %; Mean Corpuscular HGB Conc 33.1 g/dL (30.0-36.0); Mean Corpuscular Hemoglobin 28.3 pg (28.0-34.0); Mean Corpuscular Volume 85.4 fL (80-94); Mean Platelet Volume 10.5 fL (7.4-10.4); Monocytes # 0.2 10^3/uL (0.2-0.9); Monocytes % 2.7 %; Neutrophils # 6.73 10^3/uL (1.8-7.7); Neutrophils % 89.4 %; Nucleated Red Blood Cells % 0 %; Platelet Count 137 10^3/cmm (130-400); Red Blood Count 4.03 10^6/uL (4.1-5.3); Red Cell Distribution Width 15.6 % (12.1-15.1); White Blood Count 7.5 10^3/uL (4.0-10.0)
[2020-08-04 01:13] LABS: Blood Gas Sample Type Venous
[2020-08-04 01:14] LABS: Oxygen Device ROOM AIR
[2020-08-04 01:15] LABS: Ketone (Acetest) Serum Negative (Negative)
[2020-08-04 01:20] LABS: Alanine Aminotransferase 41 U/L (0-41); Albumin Level 4.1 g/dL (3.5-5.2); Alkaline Phosphatase 158 IU/L (40-130); Anion Gap 19.2 (5-19); Aspartate Amino Transferase 15 U/L (0-40); Blood Urea Nitrogen 21 mg/dL (6-20); Calcium 8.3 mg/dL (8.5-10.5); Carbon Dioxide 21 mmol/L (22-29); Chloride 93 mmol/L (98-107); Globulin 1.4 g/dL (1.3-4.6); Glomerular Filtration Rate 62.6 mL/min (90-130); Osmolality Calculated 298 mOsm/kg (285-295); Potassium 5.2 mmol/L (3.5-5.1); Sodium 128 mmol/L (136-145); Total Bilirubin 0.7 mg/dL (0.15-1.2); Total Protein 5.5 g/dL (6.6-8.7)
[2020-08-04 01:22] LABS: Glucose 627 mg/dL (65-115)
[2020-08-04 01:23] LABS: Base Excess VBG -1.6 mmol/L (-3.0-3.0); HCO3 VBG 23.7 mmol/L (24-28); PCO2 VBG 41.2 mmHg (41-51); PO2 VBG 49.6 mmHg (25-40); Venous Blood Gas Hematocrit 35.5 % (42-52); pH VBG 7.37 (7.32-7.42)
--- NOTE | 2020-08-04 01:42 | ED_ITS ---
HPI - General Adult General: Chief complaint: General Medical Stated complaint: high blood sugar/phy ref Time Seen by Provider: 08/04/20 00:36 [facility] ED PFSH: Medical History Bilateral renal stones Colostomy in place H/O Crohn's disease Left nephrolithiasis Surgical History H/O colostomy reversal Kidney transplant recipient Liver transplant recipient Family History Father , at age 65 Murder Social History Smoking and tobacco status: never smoked Alcohol intake: current Alcohol intake frequency: holidays/special occasions only Marital status: Current occupational status: disabled History of recent travel: No Course Vital Signs: Vital signs: Vital Signs Temperature 97.6 F 08/03/20 23:58 Pulse Rate 74 08/04/20 04:14 Respiratory Rate 18 08/04/20 02:24 Blood Pressure 145/87 08/04/20 04:14 Pulse Oximetry 94 08/04/20 04:14 MDM - General Adult MDM Narrative: Medical decision making narrative: Patient remained hemodynamically stable throughout ED course. Blood sugar responded well to IV insulin. There is no evidence of DKA. Kidney and liver function appears to be improving with prednisone, however I believe the prednisone is likely causative of his elevated glucose. He was seen at the [facility] and told that he would be prescribed short acting insulin to go along with his Lantus and Januvia and alogliptin, however he was not given a prescription for insulin. As such, I will give him low-dose sliding scale insulin to be taken with meals in addition to his Lantus. He wishes to go home, though I offered him admission for educational purposes. He knows he is always welcome back in the emergency department if his symptoms get worse before outpatient follow-up. We discussed at length how he needs to be mindful of hypoglycemia as it is possibly more deleterious and hyperglycemia, and is definitely a risk when adding short acting insulin to his current regimen. He shows good understanding and agrees to the plan. Lab Data: Labs: Lab Results 08/04/20 08/04/20 08/04/20 Range/Units 00:55 00:55 00:55 WBC 7.5 (4.0-10.0) 10^3/ uL RBC 4.03 L (4.1-5.3) 10^6/u L Hgb 11.4 L (11.7-16.6) g/dL Hct 34.4 L (42.0-52.0) % MCV 85.4 (80-94) fL MCH 28.3 (28.0-34.0) pg MCHC 33.1 (30.0-36.0) g/dL RDW 15.6 H (12.1-15.1) % Plt Count 137 (130-400) 10^3/c mm MPV 10.5 H (7.4-10.4) fL Neut % (Auto) 89.4 % Lymph % (Auto) 6.3 % [place] % (Auto) 2.7 % Eos % (Auto) 0.0 % Baso % (Auto) 0.1 % Neut # (Auto) 6.73 (1.8-7.7) 10^3/u L Lymph # (Auto) 0.5 L (0.8-4.8) 10^3/u L [place] # (Auto) 0.2 (0.2-0.9) 10^3/u L Eos # (Auto) 0.0 (0.0-0.8) 10^3/u L Baso # (Auto) 0.0 (0.0-0.1) 10^3/u L Nucleated RBC % (a uto) 0 % Nucleated RBCs # 0.0 /100WBC Specimen Type Oleg Test VBG pH (7.32-7.42) VBG pCO2 (41-51) mmHg VBG pO2 (25-40) mmHg VBG HCO3 (24-28) mmol/L VBG Base Excess (-3.0-3.0) mmol/ L VBG Hematocrit (42-52) % O2 Delivery Device Rubberizing Mechanic ID Sodium 128 L (136-145) mmol/L Potassium 5.2 H (3.5-5.1) mmol/L Chloride 93 L (98-107) mmol/L Carbon Dioxide 21 L (22-29) mmol/L Anion Gap 19.2 H (5-19) BUN 21 H (6-20) mg/dL Creatinine 1.2 (0.7-1.2) mg/dL GFR Calculation 62.6 L (90-130) mL/min Glucose 627 H* (65-115) mg/dL Calculated Osmolal ity 298 H (285-295) mOsm/k g Calcium 8.3 L (8.5-10.5) mg/dL Total Bilirubin 0.7 (0.15-1.2) mg/dL AST 15 (0-40) U/L ALT 41 (0-41) U/L Alkaline Phosphata se 158 H (40-130) IU/L Total Protein 5.5 L (6.6-8.7) g/dL Albumin 4.1 (3.5-5.2) g/dL Globulin 1.4 (1.3-4.6) g/dL Serum Ketones Negative (Negative) 08/04/20 Range/Units 01:05 WBC (4.0-10.0) 10^3/ uL RBC (4.1-5.3) 10^6/u L Hgb (11.7-16.6) g/dL Hct (42.0-52.0) % MCV (80-94) fL MCH (28.0-34.0) pg MCHC (30.0-36.0) g/dL RDW (12.1-15.1) % Plt Count (130-400) 10^3/c mm MPV (7.4-10.4) fL Neut % (Auto) % Lymph % (Auto) % [place] % (Auto) % Eos % (Auto) % Baso % (Auto) % Neut # (Auto) (1.8-7.7) 10^3/u L Lymph # (Auto) (0.8-4.8) 10^3/u L [place] # (Auto) (0.2-0.9) 10^3/u L Eos # (Auto) (0.0-0.8) 10^3/u L Baso # (Auto) (0.0-0.1) 10^3/u L Nucleated RBC % (a uto) % Nucleated RBCs # /100WBC Specimen Type Venous Oleg Test N/a VBG pH 7.37 (7.32-7.42) VBG pCO2 41.2 (41-51) mmHg VBG pO2 49.6 H (25-40) mmHg VBG HCO3 23.7 L (24-28) mmol/L VBG Base Excess -1.6 (-3.0-3.0) mmol/ L VBG Hematocrit 35.5 L (42-52) % O2 Delivery Device Room air Rubberizing Mechanic ID ellpe Sodium (136-145) mmol/L Potassium (3.5-5.1) mmol/L Chloride (98-107) mmol/L Carbon Dioxide (22-29) mmol/L Anion Gap (5-19) BUN (6-20) mg/dL Creatinine (0.7-1.2) mg/dL GFR Calculation (90-130) mL/min Glucose (65-115) mg/dL Calculated Osmolal ity (285-295) mOsm/k g Calcium (8.5-10.5) mg/dL Total Bilirubin (0.15-1.2) mg/dL AST (0-40) U/L ALT (0-41) U/L Alkaline Phosphata se (40-130) IU/L Total Protein (6.6-8.7) g/dL Albumin (3.5-5.2) g/dL Globulin (1.3-4.6) g/dL Serum Ketones (Negative) Discharge Plan Discharge Patient Disposition: Home Clinical Impression: Acute hyperglycemia Condition: Stable Prescriptions: New insulin regular hum U-500 conc 500 unit/mL solution See Protocol unit SUBCUT TIDWM Qty: 20 RF: 5 No Action sildenafil 100 mg tablet 100 mg PO DAILY RF: 0 calcium carbonate [Calcium 500] 500 mg calcium (1,250 mg) tablet 500 mg PO BID RF: 0 ergocalciferol (vitamin D2) 1,250 mcg (50,000 unit) capsule 50,000 unit PO Q7D RF: 0 benifiber powder 2 tsp PO BID Qty: 1 RF: 0 hydrocodone-acetaminophen 5-325 mg tablet 1 tab PO Q6H PRN (Reason: pain) Qty: 25 RF: 0 Zofran 4 mg tablet 4 mg PO Q6H PRN (Reason: nausea and vomiting) Qty: 20 RF: 0 magnesium oxide [MagOx] 400 mg (241.3 mg magnesium) Tablet 800 mg PO DAILY RF: 0 aspirin 81 mg Tablet,Chewable 81 mg PO DAILY RF: 0 finasteride 5 mg Tablet 5 mg PO DAILY RF: 0 tacrolimus 5 mg capsule 3 mg PO BID RF: 0 prednisolone 5 mg tablet 5 mg PO DAILY RF: 0 gabapentin 100 mg capsule 300 mg PO BID RF: 0 levothyroxine 50 mcg tablet 50 mcg PO DAILY RF: 0 loperamide 2 mg capsule 6 mg PO TID RF: 0 tamsulosin 0.4 mg capsule 0.8 mg PO DAILY RF: 0 Discharge Orders: Discharge ED (Routine); Ordered 08/04/20 Ordered By: Sunil Perales Referrals: Kvng Dexter DO [Primary Care Provider] - Discharge Diet: Diabetic Discharge Activity: Resume usual activity Patient Instructions: Opioid Safety Activity Restrictions/Additional Instructions: Is most likely that your sugars are higher than normal because of the prednisone you are taking. You do not appear to be in diabetic ketoacidosis. You should be able to control the sugar levels by taking short acting insulin as prescribed. Please monitor your blood glucose very closely to ensure that you do not become hypoglycemic as this can be even more dangerous than hyperglycemia. If you have any hesitation at all point, please return to the emergency department. Otherwise, follow-up closely with your normal physicians to make sure they agree with the dosing prescribed today. Coding Level of Care Code ED Station Attendant for Jaky Powell
[2020-08-04] MEDS: insulin regular-human 100 units/1 mL 10 UNIT IVP (01:52)
[2020-08-04 02:24] VITALS: BP 136/79; PULSE 71; RESP 18; O2SAT 96
[2020-08-04 02:30] VITALS: BP 127/84; PULSE 69; O2SAT 94
[2020-08-04 04:14] VITALS: BP 145/87; PULSE 74; O2SAT 94
[2020-08-04 16:10] LABS: Glucose Point of Care 565 mg/dL (70-110)
[2020-08-04 16:10] LABS: Glucose Point of Care > 600 mg/dL (70-110)
== END 2020-08-04 04:15 | disposition home or self-care (01) ==
PROVIDERS: Emergency Provider Student in an Organized Health Care Education/Training Program; PCP Emergency Medicine Emergency Medical Services
DX: R73.9 Hyperglycemia, unspecified (principal); Z79.4 Long term (current) use of insulin
CPT/HCPCS: 36416; 80053; 82009; 82803; 82962; 85025; 96374; 99283; J1815

== ENCOUNTER 2020-08-12 16:48 | Emergency (ER) | payer OTHER, SELFPAY ==
[2020-08-12 17:11] VITALS: BP 128/79; PULSE 85; RESP 18; TEMP 36.8; O2SAT 98; BMI 31.1
[2020-08-12 17:17] LABS: Glucose Point of Care 386 mg/dL (70-110)
--- NOTE | 2020-08-12 17:19 | PC.NURSE ---
pt was triaged and then decided to leave without being seen. pt appeared alert and oriented before leaving premises
== END 2020-08-12 17:21 | disposition left against medical advice (07) ==
LOC: ER 16:58
PROVIDERS: Emergency Provider Family Medicine; PCP Emergency Medicine Emergency Medical Services
DX: Z53.21 Procedure and treatment not carried out due to patient leaving prior to being seen by health care provider (principal)
CPT/HCPCS: 36416; 82962

== ENCOUNTER 2020-08-13 19:28 | Emergency (ER) | payer OTHER, SELFPAY ==
[2020-08-13 20:20] VITALS: BP 134/75; PULSE 84; RESP 17; TEMP 36.8; O2SAT 97; BMI 31.1
[2020-08-13 21:26] VITALS: BP 123/63; PULSE 68; RESP 18; O2SAT 95
[2020-08-13 21:44] LABS: Basophils % 0.3 %; Eosinophils % 1.3 %; Hematocrit 30.6 % (42.0-52.0); Hemoglobin 9.5 g/dL (11.7-16.6); Lymphocytes # 0.4 10^3/uL (0.8-4.8); Lymphocytes % 12.3 %; Mean Corpuscular Hemoglobin 28.6 pg (28.0-34.0); Mean Corpuscular Volume 92.2 fL (80-94); Mean Platelet Volume 10.1 fL (7.4-10.4); Monocytes # 0.1 10^3/uL (0.2-0.9); Monocytes % 3.8 %; Neutrophils # 2.59 10^3/uL (1.8-7.7); Neutrophils % 81.7 %; Nucleated Red Blood Cells % 0 %; Platelet Count 98 10^3/cmm (130-400); Red Blood Count 3.32 10^6/uL (4.1-5.3); Red Cell Distribution Width 17.5 % (12.1-15.1); White Blood Count 3.2 10^3/uL (4.0-10.0)
[2020-08-13 21:46] LABS: Glucose Point of Care 242 mg/dL (70-110)
[2020-08-13 22:05] LABS: Alanine Aminotransferase 447 U/L (0-41); Albumin Level 3.8 g/dL (3.5-5.2); Alkaline Phosphatase 382 IU/L (40-130); Ammonia 18 umol/L (16-60); Anion Gap 14.4 (5-19); Aspartate Amino Transferase 109 U/L (0-40); Blood Urea Nitrogen 16 mg/dL (6-20); Calcium 8.3 mg/dL (8.5-10.5); Carbon Dioxide 25 mmol/L (22-29); Chloride 97 mmol/L (98-107); Globulin 1.9 g/dL (1.3-4.6); Glomerular Filtration Rate 87.3 mL/min (90-130); Glucose 250 mg/dL (65-115); Osmolality Calculated 284 mOsm/kg (285-295); Potassium 4.4 mmol/L (3.5-5.1); Sodium 132 mmol/L (136-145); Total Bilirubin 1.9 mg/dL (0.15-1.2); Total Protein 5.7 g/dL (6.6-8.7)
[2020-08-13 22:07] LABS: Add Urine Microscopic? NO; Charge for UA Resulting for Rev
[2020-08-13 22:09] LABS: Bilirubin Urine 1+ (Negative); Blood Urine Neg (Negative); Glucose Urine UA 4+ (Normal); Ketones Urine Negative (Negative); Leukocyte Esterase Urine Negative (Negative); Nitrate Urine Negative (Negative); Protein Urine Neg (Negative); Specific Gravity, Urine 1.015 (1.005-1.030); Urine Appearance Clear (CLEAR); Urine Color Yellow (Yellow); Urobilinogen Urine 1 mg/dL (Negative); pH Urine 5 (5-7)
[2020-08-13 22:18] LABS: INR 0.95 (0.8-1.2)
[2020-08-13 23:00] VITALS: BP 132/80; PULSE 65; RESP 16; O2SAT 96
--- NOTE | 2020-08-13 23:41 | CTR_ITS ---
PROCEDURE INFORMATION: Exam: CT Abdomen And Pelvis With Contrast Exam date and time: 08/13/2020 11:44 PM Age: 55 years old Clinical indication: Abnormal findings; Abnormal lab test; Elevated liver enzymes; Prior surgery; Surgery type: Colostomy reversal. Renal transplant. ; Patient HX: Elevated lfts. History of crohn's disease. ; Additional info: Elevated lfts h/o liver/renal transplant TECHNIQUE: Imaging protocol: Computed tomography of the abdomen and pelvis with contrast. Radiation optimization: All CT scans at this facility use at least one of these dose optimization techniques: automated exposure control; mA and/or kV adjustment per patient size (includes targeted exams where dose is matched to clinical indication); or iterative reconstruction. Contrast material: OMNI 300; Contrast volume: 75 ml; Contrast route: INTRAVENOUS (IV); COMPARISON: CT abdomen pelvis wo con [id number] 07/19/2019 1:07 PM RADIATION DOSE METRICS: Total DLP (mGy-cm): FINDINGS: Lungs: Bibasilar atelectasis . Liver: Hepatic steatosis. Gallbladder and bile ducts: Normal. No calcified stones. No ductal dilation. Pancreas: Normal. No ductal dilation. Spleen: Spleen enlarged to 13 cm. Adrenal glands: Normal. No mass. Kidneys and ureters: Right renal pelvis 6.9 mm nonobstructing calculus, new compared to prior. Right renal transplant. Stomach and bowel: Reversal of previously seen right-sided ostomy. Appendix: No evidence of appendicitis. Intraperitoneal space: Unremarkable. No free air. No significant fluid collection. Vasculature: Unremarkable. No abdominal aortic aneurysm. Lymph nodes: Stable central abdominal mesenteric edema with several prominent mesenteric lymph nodes may reflect a chronic inflammatory process such as sclerosing mesenteritis or postsurgical changes. Urinary bladder: Unremarkable as visualized. Reproductive: Unremarkable as visualized. Bones/joints: Unremarkable. No acute fracture. Soft tissues: Stable right inguinal subcutaneous multiple punctate radiodense foreign bodies again seen. CT/CT abdomen pelvis w con* [id number] IMPRESSION: 1. Negative for definite focal acute appearing inflammatory process in the abdomen or pelvis 2. Bibasilar atelectasis . 3. Hepatic steatosis. 4. Spleen enlarged to 13 cm. 5. Stable central abdominal mesenteric edema with several prominent mesenteric lymph nodes may reflect a chronic inflammatory process such as sclerosing mesenteritis or postsurgical changes. 6. Right renal pelvis 6.9 mm nonobstructing calculus, new compared to prior. 7. Right renal transplant. 8. Stable right inguinal subcutaneous multiple punctate radiodense foreign bodies again seen. 9. Reversal of previously seen right-sided ostomy. Radiation Dose CTDIVOL = (mGy): DLP = 2007.19 (mGy-cm)
[2020-08-13] MEDS: iohexol 300 mg/mL 100 mL Btl IV (23:54)
[2020-08-14] VITALS (17 sets, daily range): BP systolic 98–139; BP diastolic 59–89; PULSE 55–85; RESP 14–18; TEMP 36.8–36.9; O2SAT 93–99
--- NOTE | 2020-08-14 00:21 | W.ED.RECABL ---
HPI - Recheck/Abnormal Lab/Rx General: Chief Complaint: Recheck/Abnormal Lab/Rx Stated Complaint: pt states liver is dying sent by doctor at [facility] Time Seen by Provider: 08/13/20 20:45 History of Present Illness: HPI narrative: The patient is a 55-year-old male with past medical history liver and kidney transplant years ago. He is on prednisone by his transplant specialist. He has had multiple visits recently for hyperglycemia. He was told to come to the ER today over [facility] He says that he was told his liver is dying. We do not [facility] any results from the [facility]. The patient offers no complaints in the ER today and says he feels fine. Symptoms since prior visit: no new symptoms Review of Systems General: Reports: 10 or more systems reviewed and unremarkable except in HPI and below Const: Denies: fatigue Eyes: Denies: change in vision, blurry vision or eye redness ENMT: Denies: throat pain, swelling of lips/tongue, ear or mastoid pain or nasal congestion Card: Denies: chest pain, palpitations, irregular heart rhythm, edema, dyspnea on exertion or orthopnea Resp: Denies: dyspnea, productive cough or non-productive cough GI: Denies: abdominal pain, diarrhea or GI cramping : Denies: flank pain, urinary frequency or urinary urgency Musc: Denies: neck pain, back pain, extremity pain, joint pain, joint redness, limited range of motion or muscle weakness Skin/Breast: Denies: rash, pruritus, erythema, skin pain or skin tenderness Neuro: Denies: headache(s), numbness in extremities, weakness in extremities, sensory changes, difficulty walking, dizziness, confusion or Slurred speech present Psych: Denies: anxiety or depression Endo: Denies: polyuria All/Imm: Denies: urticaria, throat swelling or tongue swelling PFSH ED PFSH: Medical History Bilateral renal stones Colostomy in place H/O Crohn's disease Left nephrolithiasis Surgical History H/O colostomy reversal Kidney transplant recipient Liver transplant recipient Family History Father , at age 65 Murder Social History Smoking and tobacco status: never smoked Alcohol intake: current Alcohol intake frequency: holidays/special occasions only Marital status: Current occupational status: disabled History of recent travel: No Physical Exam Const: COMMON NORMALS: no acute distress, average body habitus, patient oriented x3, no limitations, healthy appearing, alert and well nourished GENERAL APPEARANCE: cooperative, comfortable, well kempt and well developed ORIENTATION/CONSCIOUSNESS: Yes awake, Yes oriented to person, Yes oriented to place and Yes oriented to time HENMT: COMMON NORMALS: normocephalic, external ears normal and Normal external nose present HEAD & SCALP: normal to inspection and normocephalic NOSE: Normal external nose present EXTERNAL EAR: Yes external ears normal MOUTH: Normal oral and palatal mucosa present THROAT: posterior oropharynx normal Eye: COMMON NORMALS: Equal, round and reactive pupils present and EOMs intact bilaterally GENERAL EYE: appearance normal, both eyes and all related structures PUPIL: Yes Equal, round and reactive pupils present Neck/C-Spine: COMMON NORMALS: full ROM, no lymphadenopathy, no meningeal signs and no JVD GENERAL: Yes normal visual inspection Lymph: LYMPHATIC: no lymphadenopathy noted Chest: COMMONS NORMALS: normal inspection of the chest and normal palpation of entire chest wall Resp: COMMON NORMALS: normal respiratory effort, No retractions, No use of accessory muscles, clear to auscultation bilaterally and percussion normal EFFORT & INSPECTION: Yes able to speak in complete sentences AUSCULTATION: clear to auscultation bilaterally PERCUSSION: percussion normal Cardio: COMMON NORMALS: no JVD, regular rate, regular rhythm, S1 normal heart sound present, S2 normal heart sound present and Peripheral pulses 2+ throughout RATE: regular rate RHYTHM: regular rhythm HEART SOUNDS: S1 normal heart sound present and S2 normal heart sound present PERIPHERAL PULSES: Peripheral pulses 2+ throughout GI: COMMON NORMALS: Normal to inspection, nondistended, normoactive bowel sounds present, Soft to palpation, non-tender and no masses INSPECTION: Yes normal to inspection PALPATION: Yes Soft to palpation : COMMON NORMALS: Yes no CVA tenderness BLADDER/KIDNEY EXAM: Yes no CVA tenderness Back/Pelvis: COMMON NORMALS: no CVA tenderness, thoracic and lumbar spine normal to inspection, no thoracic nor lumbar tenderness and thoraco-lumbar ROM normal Extremity: COMMON NORMALS: normal to inspection, full ROM, capillary refill normal, no joint enlargement and no pedal edema GENERAL: Yes normal exam except as noted Neuro: COMMON NORMALS: patient oriented x3, CN's II-XII intact bilaterally, moves all extremities, no focal motor deficits, no sensory deficits noted and gait normal SENSORIUM/ORIENTATION: Yes alert, Yes oriented to person, Yes oriented to place and Yes oriented to time MENINGEAL SIGNS: Yes no meningeal signs Psych: COMMON NORMALS: mental status grossly normal, Normal thought process present, cooperative, normal affect and speech normal APPEARANCE: Yes well kempt ATTITUDE: Yes calm SPEECH: Yes normal speech THOUGHT PROCESS: Normal thought process present Skin: COMMON NORMALS: no rashes or lesions noted GENERAL SKIN EXAM: no rashes or lesions noted Course Vital Signs: Vital signs: Vital Signs Temperature 98.2 F 08/13/20 20:20 Pulse Rate 65 08/13/20 23:00 Respiratory Rate 16 08/13/20 23:00 Blood Pressure 132/80 08/13/20 23:00 Pulse Oximetry 96 08/13/20 23:00 MDM - Recheck/Abnormal Lab/Rx MDM Narrative: Medical decision making narrative: The patient does indeed have elevated AST 109, ALT 447, total bilirubin 1.9. These are above his trend 5 days ago which were all normal. Discussed with [place] [facility] Dr. Parks transplant specialist who accepts for transfer. He recommended a CT abdomen pelvis prior to transfer. It may be several hours before they have a bed. The patient is stable and can wait. Lab Data: Labs: Lab Results 08/13/20 08/13/20 08/13/20 Range/Units 21:36 21:36 21:36 WBC 3.2 L (4.0-10.0) 10^3/ uL RBC 3.32 L (4.1-5.3) 10^6/u L Hgb 9.5 L (11.7-16.6) g/dL Hct 30.6 L (42.0-52.0) % MCV 92.2 (80-94) fL MCH 28.6 (28.0-34.0) pg MCHC 31.0 (30.0-36.0) g/dL RDW 17.5 H (12.1-15.1) % Plt Count 98 L (130-400) 10^3/c mm MPV 10.1 (7.4-10.4) fL Neut % (Auto) 81.7 % Lymph % (Auto) 12.3 % [place] % (Auto) 3.8 % Eos % (Auto) 1.3 % Baso % (Auto) 0.3 % Neut # (Auto) 2.59 (1.8-7.7) 10^3/u L Lymph # (Auto) 0.4 L (0.8-4.8) 10^3/u L [place] # (Auto) 0.1 L (0.2-0.9) 10^3/u L Eos # (Auto) 0.0 (0.0-0.8) 10^3/u L Baso # (Auto) 0.0 (0.0-0.1) 10^3/u L Nucleated RBC % (a uto) 0 % Nucleated RBCs # 0.0 /100WBC PT 13.00 (12.1-14.9) SECO NDS INR 0.95 (0.8-1.2) Sodium 132 L (136-145) mmol/L Potassium 4.4 (3.5-5.1) mmol/L Chloride 97 L (98-107) mmol/L Carbon Dioxide 25 (22-29) mmol/L Anion Gap 14.4 (5-19) BUN 16 (6-20) mg/dL Creatinine 0.9 (0.7-1.2) mg/dL GFR Calculation 87.3 L (90-130) mL/min Glucose 250 H (65-115) mg/dL POC Glucose (70-110) mg/dL Calculated Osmolal ity 284 L (285-295) mOsm/k g Calcium 8.3 L (8.5-10.5) mg/dL Total Bilirubin 1.9 H (0.15-1.2) mg/dL AST 109 H (0-40) U/L ALT 447 H (0-41) U/L Alkaline Phosphata se 382 H (40-130) IU/L Ammonia (16-60) umol/L Total Protein 5.7 L (6.6-8.7) g/dL Albumin 3.8 (3.5-5.2) g/dL Globulin 1.9 (1.3-4.6) g/dL Urine Color (Yellow) Urine Appearance (CLEAR) Urine pH (5-7) Ur Specific Gravit y (1.005-1.030) Urine Protein (Negative) Urine Glucose (UA) (Normal) Urine Ketones (Negative) Urine Blood (Negative) Urine Nitrate (Negative) Urine Bilirubin (Negative) Urine Urobilinogen (Negative) mg/dL Ur Leukocyte Lindsay ase (Negative) 08/13/20 08/13/20 08/13/20 Range/Units 21:36 21:42 22:03 WBC (4.0-10.0) 10^3/ uL RBC (4.1-5.3) 10^6/u L Hgb (11.7-16.6) g/dL Hct (42.0-52.0) % MCV (80-94) fL MCH (28.0-34.0) pg MCHC (30.0-36.0) g/dL RDW (12.1-15.1) % Plt Count (130-400) 10^3/c mm MPV (7.4-10.4) fL Neut % (Auto) % Lymph % (Auto) % [place] % (Auto) % Eos % (Auto) % Baso % (Auto) % Neut # (Auto) (1.8-7.7) 10^3/u L Lymph # (Auto) (0.8-4.8) 10^3/u L [place] # (Auto) (0.2-0.9) 10^3/u L Eos # (Auto) (0.0-0.8) 10^3/u L Baso # (Auto) (0.0-0.1) 10^3/u L Nucleated RBC % (a uto) % Nucleated RBCs # /100WBC PT (12.1-14.9) SECO NDS INR (0.8-1.2) Sodium (136-145) mmol/L Potassium (3.5-5.1) mmol/L Chloride (98-107) mmol/L Carbon Dioxide (22-29) mmol/L Anion Gap (5-19) BUN (6-20) mg/dL Creatinine (0.7-1.2) mg/dL GFR Calculation (90-130) mL/min Glucose (65-115) mg/dL POC Glucose 242 H (70-110) mg/dL Calculated Osmolal ity (285-295) mOsm/k g Calcium (8.5-10.5) mg/dL Total Bilirubin (0.15-1.2) mg/dL AST (0-40) U/L ALT (0-41) U/L Alkaline Phosphata se (40-130) IU/L Ammonia 18 (16-60) umol/L Total Protein (6.6-8.7) g/dL Albumin (3.5-5.2) g/dL Globulin (1.3-4.6) g/dL Urine Color Yellow (Yellow) Urine Appearance Clear (CLEAR) Urine pH 5 (5-7) Ur Specific Gravit y 1.015 (1.005-1.030) Urine Protein Neg (Negative) Urine Glucose (UA) 4+ H (Normal) Urine Ketones Negative (Negative) Urine Blood Neg (Negative) Urine Nitrate Negative (Negative) Urine Bilirubin 1+ H (Negative) Urine Urobilinogen 1 H (Negative) mg/dL Ur Leukocyte Lindsay ase Negative (Negative) Discharge Plan Discharge Patient Disposition: Xfer Short-Term Hosp Clinical Impression: Elevated liver enzymes, Liver transplant recipient Condition: Stable Referrals: Kvng Dexetr DO [Primary Care Provider] - Coding Level of Care Code ED Roll Forming Machine Set Up Operator for Jaky Powell
--- NOTE | 2020-08-14 11:04 | PC.NURSE ---
patient denied any pain, no acute distress noted at this time.
[2020-08-14] MEDS: sodium chloride 0.9% 1,000 ML 200 ML IV (11:25)
[2020-08-14 11:41] LABS: Basophils % 0.4 %; Eosinophils % 0.4 %; Hematocrit 31.9 % (42.0-52.0); Hemoglobin 10.2 g/dL (11.7-16.6); Lymphocytes # 0.3 10^3/uL (0.8-4.8); Lymphocytes % 9.5 %; Mean Corpuscular Hemoglobin 27.6 pg (28.0-34.0); Mean Corpuscular Volume 86.4 fL (80-94); Monocytes # 0.1 10^3/uL (0.2-0.9); Monocytes % 2.9 %; Neutrophils # 2.37 10^3/uL (1.8-7.7); Neutrophils % 86.1 %; Nucleated Red Blood Cells % 0 %; Platelet Count 98 10^3/cmm (130-400); Red Blood Count 3.69 10^6/uL (4.1-5.3); Red Cell Distribution Width 17.1 % (12.1-15.1); White Blood Count 2.8 10^3/uL (4.0-10.0)
[2020-08-14 12:03] LABS: Alanine Aminotransferase 421 U/L (0-41); Albumin Level 3.7 g/dL (3.5-5.2); Alkaline Phosphatase 393 IU/L (40-130); Ammonia 13 umol/L (16-60); Aspartate Amino Transferase 113 U/L (0-40); Blood Urea Nitrogen 17 mg/dL (6-20); Calcium 8.7 mg/dL (8.5-10.5); Carbon Dioxide 23 mmol/L (22-29); Chloride 96 mmol/L (98-107); Globulin 2.3 g/dL (1.3-4.6); Glomerular Filtration Rate 87.3 mL/min (90-130); Glucose 353 mg/dL (65-115); Osmolality Calculated 286 mOsm/kg (285-295); Sodium 130 mmol/L (136-145); Total Bilirubin 1.9 mg/dL (0.15-1.2)
[2020-08-14 12:06] LABS: Anion Gap 15.4 (5-19); Potassium 4.4 mmol/L (3.5-5.1)
[2020-08-14 16:01] LABS: Glucose Point of Care 386 mg/dL (70-110)
[2020-08-14 18:17] LABS: Glucose Point of Care 358 mg/dL (70-110)
[2020-08-14 21:55] LABS: Glucose Point of Care 392 mg/dL (70-110)
== END 2020-08-14 22:03 | disposition short-term general hospital (02) ==
PROVIDERS: Emergency Medicine; Emergency Provider Family Medicine; PCP Emergency Medicine Emergency Medical Services
DX: R74.8 Abnormal levels of other serum enzymes (principal); Z94.4 Liver transplant status; Z94.0 Kidney transplant status
CPT/HCPCS: 36416; 74177; 80053; 81003; 82140; 82962; 85025; 85610; 96360; 96361; 96372; 99285; J1815; J7030; Q9967

== ENCOUNTER 2020-09-01 16:36 | Outpatient (CLI) | payer OTHER, SELFPAY ==
--- NOTE | 2020-09-01 16:59 | MR_ITS ---
WS: [id number] MRCP (MAGNETIC RESONANCE CHOLANGIOPANCREATOGRAPHY) HISTORY: ELEVATED LFT'S COMPARISON: CT 08/13/2020 TECHNIQUE: Multiple sequences are performed to evaluate the intra and extrahepatic ducts. There is an abrupt cut off within the common bile duct just distal to the common hepatic duct. This a brupt cut off persists on all sequences. There is very slight change in caliber common bile duct at [facility] site of this abrupt cut off. Proximal to the stricture the common bile duct measures 7 mm. Distal to this stricture common bile duct is 4 mm. There is edema through the miley hepatis and around the c ommon bile duct. This was also noted on the prior CT from 08/13/2020. There is mild enhancement of the common bile duct at that time. No stone identified. There is very slight dilatation of the central bi le ducts. No liver abscess identified. Liver is enlarged measuring 20 cm in length with hepatic steatosis. Spleen is also markedly enlarged measuring 17.5 cm in length. Splenomegaly has increased since 07/19/2019. Several cysts within the RIGH T kidney. The largest in the upper pole measures 8 mm. Again noted is mesenteric edema with a few sca ttered mesenteric lymph nodes. Mild perinephric stranding. There is a small amount of free fluid in [facility] central abdomen and also adjacent to the liver. Increasing fluid around the pancreas and the pancr eas is edematous and enlarged. MR/MR MRCP [id number] IMPRESSION: 1. Very slight change in caliber of the mid common bile duct. Stricture or inc omplete filling defect should be considered. There was mild enhancement of the common bile duct on the recent CT. Correlation for possible changes of cholangi tis should be considered. No abscess in the liver. 2. Only mild central bile duct dilatation. 3. Hepatosplenomegaly. 4. Central mesenteric edema with a small amount of free fluid. Increase fluid around the pancreas and the pancreas is edematous. Correlate biochemically for pancreatitis.
== END 2020-09-01 16:37 | disposition home or self-care (01) ==
PROVIDERS: PCP Emergency Medicine Emergency Medical Services; Visit Provider Emergency Medicine Emergency Medical Services
DX: R79.89 Other specified abnormal findings of blood chemistry (principal)
CPT/HCPCS: 74181

== ENCOUNTER 2020-10-22 07:27 | Outpatient (CLI) | payer OTHER, SELFPAY ==
--- NOTE | 2020-10-22 07:36 | XR_ITS ---
WS: [id number] KUB, AP view, 10/22/2020 Clinical Data: renal stones Comparison: KUB, 03/27/2020. Findings: There are radiopaque opacities overlying the right hip, periaortic and retroperitoneal lymph nodes an d lower thoracic vertebral bodies. There are clips adjacent to the right side of the T11 and T10 vert ebral bodies and clips and will in the right side of the abdomen from surgery. No renal calculi are seen. The pelvis is unremarkable. The bowel gas pattern is normal. XR/XR KUB [id number] Impression: 1. Postsurgical changes which remain the same. 2. Negative for definite renal or ureteral calculi.
== END 2020-10-22 07:28 | disposition home or self-care (01) ==
PROVIDERS: PCP Emergency Medicine Emergency Medical Services; Visit Provider Urology
DX: N20.0 Calculus of kidney (principal)
CPT/HCPCS: 74018; 81003

== ENCOUNTER → 2021-02-16 14:10 | Outpatient (BNVA) | payer OTHER, SELFPAY | PROVIDERS: PCP Emergency Medicine Emergency Medical Services; Visit Provider Internal Medicine | DX: E11.40 Type 2 diabetes mellitus with diabetic neuropathy, unspecified (principal); E11.65 Type 2 diabetes mellitus with hyperglycemia; Z94.4 Liver transplant status; Z94.0 Kidney transplant status; Z79.4 Long term (current) use of insulin | CPT/HCPCS: 99214 ==

== ENCOUNTER → 2021-03-02 13:14 | Outpatient (BNVA) | payer OTHER, SELFPAY | PROVIDERS: PCP Emergency Medicine Emergency Medical Services; Visit Provider Internal Medicine | DX: E11.40 Type 2 diabetes mellitus with diabetic neuropathy, unspecified (principal); E11.65 Type 2 diabetes mellitus with hyperglycemia; Z94.4 Liver transplant status; Z94.0 Kidney transplant status; Z79.4 Long term (current) use of insulin | CPT/HCPCS: 99214 ==

== ENCOUNTER → 2021-06-08 11:01 | Outpatient (BNVA) | payer OTHER, SELFPAY | PROVIDERS: PCP Emergency Medicine Emergency Medical Services; Visit Provider Specialist | DX: E11.40 Type 2 diabetes mellitus with diabetic neuropathy, unspecified (principal); Z79.4 Long term (current) use of insulin; Z94.4 Liver transplant status; Z94.0 Kidney transplant status | CPT/HCPCS: 99204 ==

== ENCOUNTER 2021-07-30 07:24 | Emergency (ER) | payer OTHER, SELFPAY ==
[2021-07-30 07:38] VITALS: BP 144/91; PULSE 80; RESP 16; TEMP 35.8; O2SAT 98; BMI 31.1
--- NOTE | 2021-07-30 07:40 | CT_ITS ---
WS: [id number] CT ABDOMEN AND PELVIS NONCONTRAST HISTORY: flank pain hx of stones TECHNIQUE: Imaging performed through the abdomen and pelvis. Coronal and sagittal reformats are submi tted. All CT scans at [facility] use at least one of these dose optimization techniques: auto mated exposure control; mA and/or kV adjustment per patient size (includes targeted exams where dose is matched to clinical indication); or iterative reconstruction. DLP: 2150.95 mGy.cm COMPARISON: 08/13/2020 Lower thorax: Lung bases are clear. Mildly enlarged heart. No hiatal hernia. Liver: Liver is enlarged and low attenuation from hepatic steatosis. No mass or bile duct dilatation is evident. Gallbladder: Not visualized. No history of a prior cholecystectomy was provided. Very mild inflammati on around the common bile duct but no dilatation. Pancreas: Mild peripancreatic inflammation. The inflammation is most significant around the head and proximal body. No bile duct dilatation or change in density. Spleen: Spleen is enlarged measuring 16.4 cm in length which represents a slight increase in size by 2 cm since 08/13/2020. Adrenal glands: Normal. No mass. Right kidney: Mild atrophy with perinephric stranding and a few scattered areas of decreased attenuat ion. 7 mm calcification in the RIGHT renal pelvis. This calcification was present also on the study o f 08/13/2020. Left kidney: Mild atrophy with perinephric stranding. Nonobstructing 3 mm calcification lower pole. N o ureteral stones. Patient also has a transplanted kidney in the RIGHT lower quadrant with no perinephric stranding and no obstruction. Aorta: Mild atherosclerosis abdominal aorta with no aneurysm. Numerous mesenteric lymph nodes are less than a centimeter. There is also mesenteric stranding and mi sting centrally which was present on the prior studies. Numerous calcified and noncalcified very smal l retroperitoneal lymph nodes. There is a small amount of fluid within the mesentery which has increa sed since the prior study. GI tract: Stomach is not distended. No small bowel obstruction. Surgical anastomotic sutures are note d in the RIGHT upper quadrant. Reversal of the prior colostomy. There is some very mild thickening of the colon at the surgical anastomotic site but no obstruction. Abdominal wall: Postsurgical changes. Pelvis: No free fluid in the pelvis. Urinary bladder is well distended. 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 Osseous structures: Several small sclerotic foci within the pelvis typical for small bone islands. No destructive bone lesions. CT/CT kidney stone [id number] IMPRESSION: 1. Inflammation surrounding the head and body of the pancreas consistent with pancreatitis. 2. Additional central mesenteric stranding with numerous small lymph nodes. 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 There is some flu id in the central mesentery which is increased. This could be related to the pa ncreatitis. 3. Gallbladder not identified. 4. Enlarging spleen. 5. Hepatic steatosis and hepatomegaly. 6. Transplanted kidney RIGHT pelvis. 7. Unchanged nonobstructing 7 mm calcification in the RIGHT renal pelvis.
[2021-07-30 08:08] LABS: Basophils % 0.5 %; Hematocrit 41.5 % (42.0-52.0); Hemoglobin 13.2 g/dL (11.7-16.6); Lymphocytes # 2.1 10^3/uL (0.8-4.8); Mean Corpuscular HGB Conc 31.8 g/dL (30.0-36.0); Mean Corpuscular Hemoglobin 27.4 pg (28.0-34.0); Mean Corpuscular Volume 86.1 fl (80-94); Mean Platelet Volume 9.7 fL (7.4-10.4); Monocytes # 0.2 10^3/uL (0.2-0.9); Neutrophils # 1.78 10^3/uL (1.8-7.7); Neutrophils % 42.8 %; Nucleated Red Blood Cells % 0 %; Platelet Count 250 10^3/cmm (130-400); Red Blood Count 4.82 10^6/uL (4.1-5.3); Red Cell Distribution Width 15.9 % (12.1-15.1); White Blood Count 4.2 10^3/uL (4.0-10.0)
[2021-07-30] MEDS: sodium chloride 0.9% 1,000 ML 999 ML IV (08:15)
[2021-07-30 08:28] LABS: Alanine Aminotransferase 222 U/L (0-41); Albumin Level 4.8 g/dL (3.5-5.2); Alkaline Phosphatase 635 IU/L (40-130); Anion Gap 18.1 (5-19); Aspartate Amino Transferase 247 U/L (0-40); Blood Urea Nitrogen 20 mg/dL (6-20); Calcium 9.1 mg/dL (8.5-10.5); Carbon Dioxide 22 mmol/L (22-29); Chloride 97 mmol/L (98-107); Globulin 3.1 g/dL (1.3-4.6); Glomerular Filtration Rate 62.4 mL/min (90-130); Glucose 231 mg/dL (65-115); Osmolality Calculated 284 mOsm/kg (285-295); Potassium 5.1 mmol/L (3.5-5.1); Sodium 132 mmol/L (136-145); Total Bilirubin 2.5 mg/dL (0.15-1.2); Total Protein 7.9 g/dL (6.6-8.7)
[2021-07-30 08:37] LABS: Slide Review Slide Review Perform
[2021-07-30 09:07] VITALS: BP 140/81; PULSE 74; RESP 16; O2SAT 99
--- NOTE | 2021-07-30 09:27 | PC.NURSE ---
This RN received report from TIANNA Escobar will assume care at this time.
--- NOTE | 2021-07-30 09:28 | PC.NURSE ---
This RN rounded on pt. Pt resting in bed without complaints. Pt attempting to provide urine sample at this time. Will continue to monitor.
[2021-07-30 09:39] LABS: Amylase 63 U/L (28-100); Lipase 120 U/L (13-60)
[2021-07-30 10:29] VITALS: BP 155/81; RESP 18; O2SAT 96
[2021-07-30 10:46] LABS: Glucose Urine UA 2+ (Normal); Ketones Urine Negative (Negative); Protein Urine Neg (Negative); Urine Appearance Clear (CLEAR); Urine Color Orange (Yellow); pH Urine 5 (5-7)
[2021-07-30 10:47] LABS: Add Urine Microscopic? YES; Bilirubin Urine Neg (Negative); Blood Urine 3+ (Negative); Leukocyte Esterase Urine Negative (Negative); Nitrate Urine Negative (Negative); Urobilinogen Urine Norm (Negative)
--- NOTE | 2021-07-30 10:48 | ED_ITS ---
HPI - Abdominal Pain General: Chief Complaint: Abdominal Pain Stated Complaint: severe right side pain Time Seen by Provider: 07/30/21 07:37 Source: patient Mode of arrival: ambulatory Limitations: no limitations History of Present Illness: 56-year-old male presents emergency room complaining of right-sided abdominal pain and flank pain. Is been having intermittently for the last week its been worse over the last couple hours. Patient has a previous renal and liver transplant patient he still is on suppression. He does not usually follow through the hospital or 1 of its clinics. He usually seen at the [place] had the transplant done at [place]. Patient denies any drinking recently. MD elicited complaint: abdominal pain and flank pain Pertinent past history: other (Liver and renal transplant) Onset (ago): week(s) Pain Consistency: intermittent Location: RUQ and R flank Severity: moderate Quality: cramping Radiation: none Migration to: no migration Exacerbating factors: nothing Relieving factors: nothing Associated Symptoms: Denies anorexia, belching, bloating, change in bowel habits, change in stool character, chills, coffee ground emesis, constipation, GI cramping, diarrhea, dyspepsia, dysuria, excessive flatus, fever(s), heartburn, hematochezia, hematuria, hematemesis, fecal incontinence, loose stools, melena, nausea, poor appetite, syncope and vomiting Review of Systems Const: Denies: fever(s) or chills ENMT: Denies: throat pain, ear or mastoid pain, nasal discharge or nasal congestion Card: Reports: edema; Denies: chest pain, palpitations, irregular heart rhythm or syncope Resp: Denies: dyspnea, productive cough or non-productive cough GI: Reports: abdominal pain; Denies: nausea, vomiting, hematemesis, coffee ground emesis, heartburn, diarrhea , constipation, bloating, GI cramping, belching, excessive flatus, fecal incontinence, change in bowel habits, change in stool character, hematochezia or melena : Reports: flank pain; Denies: difficulty urinating, dysuria, urinary frequency, urinary urgency or hematuria Skin/Breast: Denies: rash or pruritus PFSH ED PFSH: Medical History Bilateral renal stones Colostomy in place H/O Crohn's disease Left nephrolithiasis Uric acid urolithiasis Surgical History H/O colostomy reversal Kidney transplant recipient Liver transplant recipient Family History Father , at age 65 Murder Social History Smoking and tobacco status: never smoked Alcohol intake: current Alcohol intake frequency: holidays/special occasions only Marital status: Current occupational status: disabled History of recent travel: No Physical Exam Const: COMMON NORMALS: no acute distress GENERAL APPEARANCE: cooperative and comfortable ORIENTATION/CONSCIOUSNESS: Yes awake, Yes oriented to person, Yes oriented to place and Yes oriented to time HENMT: COMMON NORMALS: normocephalic, atraumatic and hearing grossly normal bilaterally HEAD & SCALP: normocephalic and atraumatic Neck/C-Spine: COMMON NORMALS: no JVD Resp: COMMON NORMALS: normal respiratory effort, No retractions, No use of accessory muscles and clear to auscultation bilaterally AUSCULTATION: clear to auscultation bilaterally Cardio: COMMON NORMALS: no JVD, regular rate, regular rhythm and No murmurs present (Cardio) RATE: regular rate RHYTHM: regular rhythm GI: COMMON NORMALS: Soft to palpation and No hepatosplenomegaly present AUSCULTATION: Yes normoactive bowel sounds PALPATION: Yes Soft to palpation, No Tenderness to palpation present (GI), No Guarding due to palpation present (GI) and Yes No hepatosplenomegaly present Extremity: COMMON NORMALS: normal to inspection, capillary refill normal, no clubbing, cyanosis or edema, no calf tenderness and no pedal edema Neuro: SENSORIUM/ORIENTATION: Yes oriented to person, Yes oriented to place and Yes oriented to time Skin: COMMON NORMALS: no rashes or lesions noted GENERAL SKIN EXAM: no rashes or lesions noted Course Vital Signs: Vital signs: Vital Signs Temperature 96.5 F L 07/30/21 07:38 Pulse Rate 75 07/30/21 11:30 Respiratory Rate 16 07/30/21 11:30 Blood Pressure 152/95 07/30/21 11:30 Pulse Oximetry 97 07/30/21 11:30 MDM - Abdominal Pain Medical Decision Making Labs and imaging reviewed. I discussed with Dr. Montalvo. She has not seen a dilation or obstruction of the common bile duct. She does see some inflammation around the pancreas. I am concerned with his marked elevation of enzymes and his T bili. His kidney function seems to be stable. I contacted the hepatology transplant clinic they reviewed their records this does indeed represent a significant and sudden change in what they have been monitoring and they would like to have him transferred up to [place] for possible ERCP. Reviewed with the patient he did not want to go there his symptoms have resolved at this point and he states they will not do anything until Monday so he refuses to go up there and he left AM. I discussed with him is very concerned that this may get worse and he may even end up causing severe damage to his transplanted liver and/or kidneys he expresses understanding of this and still refuses to go to [place] and chooses instead to leave [place]. Medical Records I reviewed the patient's medical records. Lab Data I reviewed the patient's lab results. : 07/30/21 07:45 07/30/21 07:45 Labs/Radiology: Radiology Impressions Abdomen/Pelvis CT 07/30/21 07:40 IMPRESSION: 1. Inflammation surrounding the head and body of the pancreas consistent with pancreatitis. 2. Additional central mesenteric stranding with numerous small lymph nodes. 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 There is some fluid in the central mesentery which is increased. This could be related to the pancreatitis. 3. Gallbladder not identified. 4. Enlarging spleen. 5. Hepatic steatosis and hepatomegaly. 6. Transplanted kidney RIGHT pelvis. 7. Unchanged nonobstructing 7 mm calcification in the RIGHT renal pelvis. Laboratory Results WBC 4.2 10^3/uL (4.0-10.0) 07/30/21 07:45 RBC 4.82 10^6/uL (4.1-5.3) 07/30/21 07:45 Hgb 13.2 g/dL (11.7-16.6) 07/30/21 07:45 Hct 41.5 % (42.0-52.0) L 07/30/21 07:45 MCV 86.1 fl (80-94) 07/30/21 07:45 MCH 27.4 pg (28.0-34.0) L 07/30/21 07:45 MCHC 31.8 g/dL (30.0-36.0) 07/30/21 07:45 RDW 15.9 % (12.1-15.1) H 07/30/21 07:45 Plt Count 250 10^3/cmm (130-400) 07/30/21 07:45 MPV 9.7 fL (7.4-10.4) 07/30/21 07:45 Neut % (Auto) 42.8 % 07/30/21 07:45 Lymph % (Auto) 50.0 % 07/30/21 07:45 Mccone % (Auto) 5.0 % 07/30/21 07:45 Eos % (Auto) 1.0 % 07/30/21 07:45 Baso % (Auto) 0.5 % 07/30/21 07:45 Neut # (Auto) 1.78 10^3/uL (1.8-7.7) L 07/30/21 07:45 Lymph # (Auto) 2.1 10^3/uL (0.8-4.8) 07/30/21 07:45 Mccone # (Auto) 0.2 10^3/uL (0.2-0.9) 07/30/21 07:45 Eos # (Auto) 0.0 10^3/uL (0.0-0.8) 07/30/21 07:45 Baso # (Auto) 0.0 10^3/uL (0.0-0.1) 07/30/21 07:45 Nucleated RBC % (auto) 0 % 07/30/21 07:45 Nucleated RBCs # 0.0 /100WBC 07/30/21 07:45 Sodium 132 mmol/L (136-145) L 07/30/21 07:45 Potassium 5.1 mmol/L (3.5-5.1) 07/30/21 07:45 Chloride 97 mmol/L (98-107) L 07/30/21 07:45 Carbon Dioxide 22 mmol/L (22-29) 07/30/21 07:45 Anion Gap 18.1 (5-19) 07/30/21 07:45 BUN 20 mg/dL (6-20) 07/30/21 07:45 Creatinine 1.2 mg/dL (0.7-1.2) 07/30/21 07:45 GFR Calculation 62.4 mL/min (90-130) L 07/30/21 07:45 Glucose 231 mg/dL (65-115) H 07/30/21 07:45 Calculated Osmolality 284 mOsm/kg (285-295) L 07/30/21 07:45 Calcium 9.1 mg/dL (8.5-10.5) 07/30/21 07:45 Total Bilirubin 2.5 mg/dL (0.15-1.2) H 07/30/21 07:45 AST 247 U/L (0-40) H 07/30/21 07:45 ALT 222 U/L (0-41) H 07/30/21 07:45 Alkaline Phosphatase 635 IU/L (40-130) H 07/30/21 07:45 Total Protein 7.9 g/dL (6.6-8.7) 07/30/21 07:45 Albumin 4.8 g/dL (3.5-5.2) 07/30/21 07:45 Globulin 3.1 g/dL (1.3-4.6) 07/30/21 07:45 Amylase 63 U/L (28-100) 07/30/21 07:45 Lipase 120 U/L (13-60) H 07/30/21 07:45 Urine Color [place] (Yellow) 07/30/21 10:15 Urine Appearance Clear (CLEAR) 07/30/21 10:15 Urine pH 5 (5-7) 07/30/21 10:15 Ur Specific [place] 1.020 (1.005-1.030) 07/30/21 10:15 Urine Protein Neg (Negative) 07/30/21 10:15 Urine Glucose (UA) 2+ (Normal) H 07/30/21 10:15 Urine Ketones Negative (Negative) 07/30/21 10:15 Urine Blood 3+ (Negative) H 07/30/21 10:15 Urine Nitrate Negative (Negative) 07/30/21 10:15 Urine Bilirubin Neg (Negative) 07/30/21 10:15 Urine Urobilinogen Norm mg/dL (Negative) 07/30/21 10:15 Ur Leukocyte Esterase Negative (Negative) 07/30/21 10:15 Urine RBC 10-15 /hpf (0-2) H 07/30/21 10:15 Urine WBC 0-4 /hpf (0-5) H 07/30/21 10:15 Ur Squamous Epith Cells 0-4 /hpf (0-5) H 07/30/21 10:15 Amorphous Sediment Not Reportable 07/30/21 10:15 Urine Bacteria None /hpf (NONE) 07/30/21 10:15 Urine Mucus N /hpf 07/30/21 10:15 Discharge Plan Discharge Patient Disposition: Left Against Medical Advice Clinical Impression: Pancreatitis, Elevated liver enzymes, Elevated bilirubin, History of renal transplant, History of liver transplant Condition: Stable Prescriptions: No Action ferrous sulfate 325 mg (65 mg iron) tablet 325 mg PO DAILY 0RF mecobalamin (vitamin B12) 1,000 mcg tablet,disintegrating 2,000 mcg sublingual DAILY 0RF Rx Instructions: place tablet under tongue and allow to dissolve for at least30 secs before swallowing alogliptin 25 mg tablet 25 mg PO DAILY 0RF omega-3 fatty acids 500 mg capsule 500 mg PO BID 0RF Lantus Solostar U-100 Insulin 100 unit/mL (3 mL) insulin pen 60 unit SUBCUT QAM Qty: 45 3RF Rx Instructions: Administer 60 units subcut daily. (DME) pen needle, diabetic 32 gauge x 5/32 needle See Rx Instructions .Route Qty: 100 3RF Rx Instructions: As directed (DME) Dexcom G6 Operations Support Coordinator Misc See Rx Instructions .Route Qty: 1 0RF Rx Instructions: Check Bs 4-6 times a day. (DME) Dexcom G6 Sensor Device See Rx Instructions .Route Qty: 3 3RF Rx Instructions: As directed (DME) Dexcom G6 Transmitter Device See Rx Instructions .Route Qty: 1 3RF Rx Instructions: As directed sildenafil 100 mg tablet 100 mg PO DAILY 0RF Rx Instructions: administer 30 minutes to 4 hours before activity calcium carbonate [Calcium 500] 500 mg calcium (1,250 mg) tablet 500 mg PO BID 0RF ergocalciferol (vitamin D2) 1,250 mcg (50,000 unit) capsule 50,000 unit PO Q7D 0RF Rx Instructions: only take on mondays doxycycline hyclate 100 mg capsule 100 mg PO BID Qty: 14 0RF albuterol sulfate [Ventolin HFA] 90 mcg/actuation HFA aerosol inhaler 2 puff inhalation Q6H PRN (Reason: shortness of breath or wheezing) Qty: 8.5 0RF potassium citrate 10 mEq (1,080 mg) tablet extended release 10 meq PO BID Qty: 180 3RF ropinirole 0.5 mg tablet 0.5 mg PO BID Qty: 60 5RF Rx Instructions: Take one tablet in the afternoon and one tablet at bedtime. aspirin 81 mg Tablet,Chewable 81 mg PO DAILY 0RF finasteride 5 mg Tablet 5 mg PO DAILY 0RF tacrolimus 5 mg capsule 3 mg PO BID@0600,1800 0RF prednisolone 5 mg tablet 5 mg PO DAILY 0RF gabapentin 100 mg capsule 300 mg PO BID 0RF levothyroxine 50 mcg tablet 50 mcg PO DAILY 0RF loperamide 2 mg capsule 6 mg PO TID 0RF tamsulosin 0.4 mg capsule 0.8 mg PO DAILY@0600 0RF atropine See Rx Instructions .ROUTE .COMPLEX 0RF Rx Instructions: USE DIRECTED. azathioprine See Rx Instructions .ROUTE .COMPLEX 0RF Rx Instructions: TAKE DIRECTED calcitriol 1 tab PO DAILY@0600 0RF Novolog U-100 Insulin aspart 100 unit/mL solution See Rx Instructions .ROUTE .COMPLEX 0RF Rx Instructions: 12 units before meals SLIDING SCALE Referrals: Kvng Dexter DO [Primary Care Provider] - Coding Level of Care Code ED Statistical Assistant for Jaky Powell
[2021-07-30 10:51] LABS: Add Urine Culture? Yes; Mucus Urine N /hpf; Squamous Epithelial Cell Urine 0-4 /hpf (0-5); WBC Urine 0-4 /hpf (0-5)
[2021-07-30 11:30] VITALS: BP 152/95; PULSE 75; RESP 16; O2SAT 97
== END 2021-07-30 12:00 | disposition left against medical advice (07) ==
PROVIDERS: Registered Nurse; Emergency Provider Family Medicine; PCP Emergency Medicine Emergency Medical Services
DX: K85.90 Acute pancreatitis without necrosis or infection, unspecified (principal); R94.5 Abnormal results of liver function studies; E80.7 Disorder of bilirubin metabolism, unspecified; Z94.0 Kidney transplant status; Z94.4 Liver transplant status; Z53.29 Procedure and treatment not carried out because of patient's decision for other reasons; Z79.899 Other long term (current) drug therapy
CPT/HCPCS: 74176; 80053; 81001; 82150; 83690; 85025; 87086; 99283; J7030

== ENCOUNTER → 2021-08-19 13:04 | Outpatient (BNVA) | payer OTHER, SELFPAY | PROVIDERS: PCP Emergency Medicine Emergency Medical Services; Visit Provider Specialist | DX: E11.40 Type 2 diabetes mellitus with diabetic neuropathy, unspecified (principal); Z79.4 Long term (current) use of insulin | CPT/HCPCS: 95908; 95910 ==

== ENCOUNTER 2021-08-25 07:32 | Outpatient (CLI) | payer OTHER, SELFPAY ==
--- NOTE | 2021-08-25 07:40 | XR_ITS ---
WS: [id number] KUB, AP view, 08/25/2021 Clinical Data: STONES Comparison: KUB, 10/22/2020. Findings: No abnormal intraabdominal masses or calcifications are seen. There is no dilatated small bowel or ev idence of obstruction. There is radiopaque material overlying the right hip, periaortic and retroperitoneal lymph nodes on t he left and the lower thoracic vertebral bodies. There are surgical clips overlying the left side of the T10-T12 vertebral bodies. There are surgical clips in the right side of the abdomen. There are avilez rgical will in the right abdomen. XR/XR KUB [id number] Impression: 1. Postsurgical changes. 2. Negative for renal or ureteral calculi.
== END 2021-08-25 07:33 | disposition home or self-care (01) ==
LOC: RAD 07:33
PROVIDERS: PCP Emergency Medicine Emergency Medical Services; Visit Provider Nurse Practitioner Family
DX: N20.1 Calculus of ureter (principal); N20.9 Urinary calculus, unspecified; R10.9 Unspecified abdominal pain
CPT/HCPCS: 74018; 99213

== ENCOUNTER → 2021-08-26 10:33 | Outpatient (BNVA) | payer OTHER, SELFPAY | PROVIDERS: PCP Emergency Medicine Emergency Medical Services; Visit Provider Internal Medicine | DX: E11.40 Type 2 diabetes mellitus with diabetic neuropathy, unspecified (principal); E11.65 Type 2 diabetes mellitus with hyperglycemia; Z94.4 Liver transplant status; Z94.0 Kidney transplant status; Z79.4 Long term (current) use of insulin | CPT/HCPCS: 99214 ==

== ENCOUNTER 2021-10-28 07:34 | Outpatient (CLI) | payer OTHER, SELFPAY ==
--- NOTE | 2021-10-28 07:41 | XR_ITS ---
WS: [id number] KUB, AP view, 10/28/2021 Clinical Data: Kidney Stone Comparison: KUB, 08/25/2021. Findings: No abnormal intraabdominal masses or calcifications are seen. There is no dilatated small bowel or ev idence of obstruction. There is radiopaque material overlying the right hip, right pelvis and adjacent to the left side of t he lumbar vertebral bodies L2-L4. There are surgical clips on the right side of the abdomen. There are small surgical sutures on the ri ght side of the abdomen. XR/XR KUB [id number] Impression: 1. Postsurgical changes. 2. Negative for renal or ureteral calculi.
== END 2021-10-28 07:35 | disposition home or self-care (01) ==
LOC: RAD 07:36
PROVIDERS: PCP Emergency Medicine Emergency Medical Services; Visit Provider Urology
DX: N20.1 Calculus of ureter (principal); N20.9 Urinary calculus, unspecified; R10.9 Unspecified abdominal pain
CPT/HCPCS: 74018; 81003; 99214

== ENCOUNTER 2021-11-03 06:06 | Day surgery (SDC) | payer OTHER, SELFPAY ==
[2021-11-03] VITALS (12 sets, daily range): BP systolic 132–177; BP diastolic 73–112; PULSE 82–93; RESP 16–21; TEMP 36.6; O2SAT 93–99
--- NOTE | 2021-11-03 | SCC_ITS ---
Procedure done: 1. Cystoscopy, RIGHT retrograde ureteropyelogram 2. RIGHT ureterorenoscopy, laser lithotripsy, stent 45.8 seconds of fluoroscopic guidance, for a cumulative dose of 17.73 mGy, was provided to Dr. Taveras by the radiology department. C-arm images of the abdomen were saved for the patient's permanent record. [facility]
--- NOTE | 2021-11-03 05:53 | W.PM.OPSUD ---
Surgery/Procedure H&P Update DATE OF PROCEDURE: November 03, 2021 DATE H&P PERFORMED: 10/28/21 H&P UPDATE INFORMATION: I have reviewed H&P completed within last 30 days, I have examined patient prior to procedure, No changes to prior documentation and H&P is in [facility] on date indicated PLANNED PROCEDURE: Operation Date: 11/03/21 07:00 Proposed Procedures p CYSTOSCOPY RIGHT RETROGRADE URETEROSCOPY LASER STENT [id number] [id number],N20.9(Not Applicable) - Dakota Taveras MD s Retrograde Pyelogram(Right) - MD nathan Rivera Laser Lithotripsy(Right) - MD nathan Rivera Ureteral Stent Placement(Right) - Dakota Taveras MD
--- NOTE | 2021-11-03 06:09 | SC_ITS ---
WS: [id number] C-arm fluoroscopy for right ureteral stent placement, 11/03/2021 Clinical Data: Preop right ureteroscopy Comparison: None. Findings: Dr. Taveras inserted a right ureteral stent. SC/C-arm FL for Urology Impression: Right ureteral stent
[2021-11-03] MEDS: sodium chloride 0.9% 1,000 ML 30 ML IV (06:34)
[2021-11-03 06:35] LABS: Glucose Point of Care 340 mg/dL (70-110)
[2021-11-03 06:48] LABS: Basophils % 0.3 %; Eosinophils % 1.2 %; Hemoglobin 13.4 g/dL (11.7-16.6); Lymphocytes % 28.4 %; Mean Corpuscular HGB Conc 32.7 g/dL (30.0-36.0); Mean Corpuscular Hemoglobin 29.5 pg (28.0-34.0); Mean Corpuscular Volume 90.1 fl (80-94); Mean Platelet Volume 10.4 fL (7.4-10.4); Monocytes # 0.2 10^3/uL (0.2-0.9); Monocytes % 4.4 %; Neutrophils # 2.21 10^3/uL (1.8-7.7); Neutrophils % 65.4 %; Nucleated Red Blood Cells % 0 %; Platelet Count 133 10^3/cmm (130-400); Red Blood Count 4.55 10^6/uL (4.1-5.3); Red Cell Distribution Width 14.7 % (12.1-15.1); White Blood Count 3.4 10^3/uL (4.0-10.0)
--- NOTE | 2021-11-03 06:53 | P.OP_ITS ---
Operative Report Date of procedure: November 03, 2021 Pre-op diagnosis: Right UPJ stone Post-op diagnosis: Right UPJ stone Procedure done: 1. Cystoscopy, RIGHT retrograde ureteropyelogram 2. RIGHT ureterorenoscopy, laser lithotripsy, stent Implants: Right ureteral stent Specimens removed/disposition: Stone fragments Pathology: Stone fragments Surgeon: Darcy Estimated blood loss: Minimal Urine output: Not measured Findings: Anesthesia: General Condition: Stable Disposition: PACU Stone in the expected position at the right UPJ. Easily accessible and treated with laser lithotripsy with complete fragmentation. Stent left indwelling. Brief History: Neno is a 56-year-old white male with a history of mixed urolithiasis with prior analysis showing 80% uric acid and 20% calcium based stones. Was recently evaluated for abdominal pain with CT scan and showed a 7 mm stone at the right UPJ without severe obstruction. He was having intermittent pain that reminded him of previous stone episodes. Could not prove obstruction radiographically though. After multiple conversations it was eventually elected to proceed with intervention. Based on the radiolucent aspect of the stone it was recommended to perform endoscopic treatment. Procedure: After routine preoperative evaluation examination and obtaining of informed consent he was taken to the operating suite on 11/03/2021 where general anesthesia was administered without difficulty after appropriate timeout was performed, SCDs confirmed to be functioning, preoperative antibiotics administered, beta-federico protocol confirmed. Prepped and draped in usual sterile fashion in dorsolithotomy position paying careful attention to avoiding pressure points. 21 Tamazight cystoscope with 30 degree lens was introduced into the urethra meatus and advanced into the bladder without difficulty. The bladder was systematically examined. No stones were seen. An 8 Tamazight cone-tip catheter was intubated into the [place] right ureteral orifice for RIGHT RETROGRADE URETERAL PYELOGRAM: Normal ureter in course and caliber throughout. Filling defect consistent with a stone seen in the UPJ/renal pelvis. Sharp calyces with no other filling defects noted. Flexible tip guidewire was then advanced up the left ureter without difficulty. The distal ureter was then dilated with a 15 Tamazight 4 cm balloon with no waist. The wire was secured to the drapes as a safety wire. 7 Tamazight offset semirigid ureteroscope was advanced up the right ureter next to the wire easily through the UPJ where the stone was partially visualized on the posterior floor of the renal pelvis. Cannot be adequately reach with a straight scope. The scope was removed. A second guidewire was passed and then a 38 cm ureteral access sheath was advanced easily over that working wire under fluoroscopic monitoring to the hub. The inner sheath and wire removed and a flexible ureteroscope was advanced through the sheath into the renal pelvis without difficulty. The stone was defined in the expected position. A 365 ?m thulium superpulse laser fiber was then utilized to fragment the stone mostly into sand with some very small particles. An X catch basket was utilized removed good portion of the sand and particles. A lot of the material flushed around the scope. Sand-like pieces were barbotaged through the scope. On final inspection no significant fragments remained. The calyces were inspected 1 final time to confirm this. Contrast was injected through the scope to help visualize all of the calyces to be identified. The sheath was then backed down onto the hub of the scope and the scope was removed under vision. The ureter was in good shape. The safety wire was then backloaded through the cystoscope and a 6 Tamazight by 30 cm double-pigtail stent was advanced over the guidewire through the cystoscope into appropriate position as confirmed via fluoroscopy and cystoscopy. The bladder was inspected and drained. No stones remained. Urine efflux from the right transplant ureteral orifice was confirmed. He tolerated procedure well without complications and was awakened in the operating room and returned to the recovery room in stable condition. PLANS: 1. Anticipate discharge from outpatient surgery today 2. Maintain stent for approximately 1 week and remove in clinic.
[2021-11-03] MEDS: insulin regular-human 100 units/1 mL 10 UNIT IVP (07:08)
[2021-11-03 07:14] LABS: Alanine Aminotransferase 38 U/L (0-41); Albumin Level 4.3 g/dL (3.5-5.2); Alkaline Phosphatase 193 U/L (40-130); Anion Gap 18.2 (5-19); Aspartate Amino Transferase 18 U/L (0-40); Blood Urea Nitrogen 11 mg/dL (6-20); Calcium 9.2 mg/dL (8.5-10.5); Carbon Dioxide 23 mmol/L (22-29); Chloride 100 mmol/L (98-107); Globulin 2.6 g/dL (1.3-4.6); Glucose 347 mg/dL (65-115); Osmolality Calculated 297 mOsm/kg (285-295); Potassium 4.2 mmol/L (3.5-5.1); Sodium 137 mmol/L (136-145); Total Bilirubin 0.6 mg/dL (0.15-1.2); Total Protein 6.9 g/dL (6.6-8.7)
[2021-11-03] MEDS: ceFAZolin 2,000 MG in sodium chloride 0.9% (plus) 50 ML 100 MG IV (07:19)
[2021-11-03] MEDS: iohexol 300 mg/mL 50 mL Btl (OR ONLY) XX (07:44)
--- NOTE | 2021-11-03 08:05 | P.ANESASSM_ITS ---
Pre-Anesthetic Assessment Height/Weight: Height 1.83 m Weight 108.862 kg Temp Pulse Resp BP Pulse Ox O2 Del Method 97.8 F 84 16 163/99 96 11/03/21 06:23 11/03/21 06:23 11/03/21 06:23 11/03/21 06:23 11/03/21 06:23 11/03/21 06:23 Preop Diagnosis: Large right UPJ stone Operation Date: 11/03/21 07:00 Proposed Procedures p CYSTOSCOPY RIGHT RETROGRADE URETEROSCOPY LASER STENT 42481 MOD 26 [id number],N20.9(Not Applicable) - Dakota Taveras MD s Retrograde Pyelogram(Right) - MD nathan Rivera Laser Lithotripsy(Right) - MD nathan Rivera Ureteral Stent Placement(Right) - Dakota Taveras MD Familial anesthetic complications: None Was Beta Gamaliel taken within 24 hours: N/A Was Clonidine taken within 24 hours: N/A Last intake: Intake Last Liquid Date 11/02/21 Last Liquid Time 20:00 Last Solid Date 11/02/21 Last Solid Time 20:00 Social No alcohol and No tobacco Exam alert, oriented x 3, clear to auscultation bilaterally and regular rate & rhythm Airway Submandibular: within normal limits Cervical ROM: within normal limits Dentition: chipped Comments: Comments: Poor dentition, multiple missing and chipped/cracked Kidney tx Hepatic Liver tx Metabolic Diabetes Mellitus (Poorly controlled), Morbid Obesity and Thyroid Disease Chronic steroids Anesthetic Plan ASA status: 3 Anesthesia: General Medications/Allergies Home Medications Medication Instructions Recorded Confirmed Last Taken Type aspirin 81 mg chewable tablet 81 mg PO DAILY 04/05/19 11/03/21 11/02/21 History finasteride 5 mg tablet 5 mg PO DAILY 04/05/19 11/03/21 11/02/21 History gabapentin 100 mg capsule 300 mg PO BID 03/23/20 11/03/21 11/02/21 History levothyroxine 50 mcg tablet 50 mcg PO DAILY 03/23/20 11/03/21 11/02/21 History loperamide 2 mg capsule 6 mg PO TID Diarrhea 03/23/20 11/02/21 Unknown History prednisolone 5 mg tablet 5 mg PO DAILY 03/23/20 11/03/21 11/02/21 History (Millipred) tacrolimus 5 mg capsule, 3 mg PO BID@0600,1800 03/23/20 11/03/21 11/02/21 History immediate-release (Prograf) tamsulosin 0.4 mg capsule 0.8 mg PO DAILY@0600 03/23/20 11/03/21 11/02/21 History ergocalciferol (vitamin D2) 1,250 50,000 unit PO Q7D 06/15/20 11/03/21 11/02/21 History mcg (50,000 unit) capsule atropine 1 PO BID 08/13/20 10/28/21 08/13/20 History calcitriol 1 tab PO DAILY@0600 08/13/20 11/03/21 11/02/21 History potassium citrate 10 mEq (1,080 10 meq PO BID #180 tabs 01/27/21 11/03/21 11/02/21 Rx mg) tablet,extended release alogliptin 25 mg tablet (Nesina) 25 mg PO DAILY 03/02/21 11/03/21 11/02/21 History ferrous sulfate 325 mg (65 mg 325 mg PO DAILY 03/02/21 11/03/21 11/02/21 History iron) tablet mecobalamin (vitamin B12) 1,000 2,000 mcg sublingual DAILY 03/02/21 11/03/21 11/02/21 History mcg disintegrating tablet,sublingual omega-3 fatty acids 500 mg capsule 500 mg PO BID 03/02/21 11/03/21 11/02/21 History pen needle, diabetic 32 gauge x #100 ea 03/02/21 10/28/21 Unknown Rx blood-glucose meter,continuous #1 ea 03/03/21 10/28/21 Unknown Rx (Dexcom G6 [employer]ist) blood-glucose sensor (Dexcom G6 #9 ea 08/27/21 10/28/21 Unknown Rx Sensor) blood-glucose transmitter (Dexcom #3 ea 08/27/21 10/28/21 Unknown Rx G6 Transmitter) insulin aspart U-100 100 unit/mL 10 unit (0.1 mL) SUBCUT TID #30 mL 08/27/21 11/03/21 11/02/21 Rx (3 mL) subcutaneous pen (Novolog Flexpen U-100 Insulin aspart) insulin glargine 100 unit/mL (3 30 unit (0.3 mL) SUBCUT QAM #30 mL 08/27/21 11/03/21 11/02/21 Rx mL) subcutaneous pen (Lantus Solostar U-100 Insulin) sulfamethoxazole 400 1 tab PO DIRECTED 11/02/21 11/03/21 11/01/21 History mg-trimethoprim 80 mg tablet (Bactrim) Allergies Allergy/AdvReac Type Severity Reaction Status Date / Time adalimumab [From Humira] Allergy Unknown Unknown Verified 10/28/21 08: Humira Allergy Unknown Unknown Uncoded 10/28/21 08:22 Current Medications Generic Name Dose Route Start Last Admin Trade Name Freq PRN Reason Stop Dose Admin Sodium Chloride 1,000 mls @ 30 mls/hr 11/03/21 06:45 11/03/21 06:34 Sodium Chloride 0.9% IV 11/04/21 06:44 30 mls/hr .Q24H CON Administration PFSH Anesthesia Medical History Bilateral renal stones Colostomy in place H/O Crohn's disease Left nephrolithiasis Uric acid urolithiasis Surgical History H/O colostomy reversal Kidney transplant recipient Liver transplant recipient Family History Father , early 60s Murder Cancer Colon Cancer Mother Healthy adult Social History Smoking and tobacco status: never smoked Alcohol intake: never Marital status: Current occupational status: disabled History of recent travel: No Data Anesthesia : 11/03/21 06:30 11/03/21 06:30 Short CBC 11/03/21 Range/Units 06:30 WBC 3.4 L (4.0-10.0) 10^3/uL Hgb 13.4 (11.7-16.6) g/dL Hct 41.0 L (42.0-52.0) % MCV 90.1 (80-94) fl Plt Count 133 (130-400) 10^3/cmm Neut % (Auto) 65.4 % Neut # (Auto) 2.21 (1.8-7.7) 10^3/uL BMP 11/03/21 06:30 Sodium 137 Potassium 4.2 Chloride 100 Carbon Dioxide 23 BUN 11 Creatinine 1.0 Glucose 347 H Calcium 9.2 Liver Function 11/03/21 Range/Units 06:30 Total Bilirubin 0.6 (0.15-1.2) mg/dL AST 18 (0-40) U/L ALT 38 (0-41) U/L Alkaline Phosphatase 193 H (40-130) U/L Albumin 4.3 (3.5-5.2) g/dL Cardiac Studies: No Data to Display
--- NOTE | 2021-11-03 09:09 | SUR.PHASEI ---
0856 PT TO PACU 5 PT SLEEPY WITH GOOD RESP EFFORT, ORAL AIRWAY IN PLACE, IV TO LT FA #20 WITH NS 300ML UP AT KVO RATE PER GRAVITY, PT DOES NOT AWAKE TO TOUCH, BP ELEVATED PT WAS FULL REVERSAL IN OR, WILL WAIT FOR PT TO FULLY AWAKE, MONITOR SR NO ECTOPY, ID BRACELET TO LT WRIST PT ID'D WITH 2 IDENTIFIERS, SCDS ON AND WORKING HOB AT 30 DEGREES, BLOOD GLUCOSE CHECKED AFTER PREOP IV INSULIN GIVEN NOW IS 254, SUPERVISOR CONTINUOUS WELD PIPE MILL IS AT BEDSIDE, NO FURTHER ORDERS RECIEVED.
--- NOTE | 2021-11-03 09:17 | SUR.PHASEI ---
0908 PT RESPONDS TO VERBAL STIMULI, DOES NOT AWAKE, BUT ORAL AIRWAY OUT, PT ROLLING TO RT SIDE PER SELF, PT DOES NOT OPEN EYES OR VERBALIZED, BP STILL ELEVATED , WILL ALLOW PT TO BE MORE ALERT AND RECHECK BP NO S/S OF PAIN AT THIS TIME, SATS 96% ON RA.
[2021-11-03 09:24] LABS: Glucose Point of Care 254 mg/dL (70-110)
--- NOTE | 2021-11-03 09:29 | SUR.PHASEI ---
PT GROGGY, NODS HEAD YES TO QUESTION DO YOU KNOW WHERE YOU ARE? BUT PT UNABLE TO GIVE VERBAL ANSWER, PT TRYING TO GET UP , PT STATES NEED TO URINATE, PT GIVEN URINAL, PT LYING ON LT SIDE NOW , POSITION OF COMFORT ATTEMPTING TO USE URINAL.
[2021-11-03] MEDS: oxyCODONE-APAP 5-325 mg Tablet 1 TAB PO (09:56)
--- NOTE | 2021-11-03 13:03 | ANE.PACU2 ---
Inpatient post-anesthesia follow up: Airway intact: Yes Vital signs: Temperature 97.8 F Pulse Rate 82 Respiratory Rate 20 Blood Pressure 132/89 Pulse Oximetry 93 Oxygen Delivery Me thod Room Air Oxygen Flow Rate 8 Fraction of Inspir ed Oxygen Hydration adequate: Yes Nausea and vomiting: No Pain level: 3 Mental status: Baseline
[2021-11-09 09:55] LABS: Stone Source OTHER
== END 2021-11-03 10:11 | disposition home or self-care (01) ==
PROVIDERS: PCP Family Medicine; Visit Provider Urology
PROC: 0TJB8ZZ Inspection of Bladder, Via Natural or Artificial Opening Endoscopic (ICD-10-PCS; CPT 52000; principal; 2021-11-03 07:00)
PROC: (CPT 74420; 2021-11-03 07:00)
PROC: (CPT 52353; 2021-11-03 07:00)
PROC: (CPT 50605; 2021-11-03 07:00)
DX: N20.9 Urinary calculus, unspecified (principal); E11.9 Type 2 diabetes mellitus without complications; E66.01 Morbid (severe) obesity due to excess calories; Z79.899 Other long term (current) drug therapy; Z79.4 Long term (current) use of insulin; Z79.52 Long term (current) use of systemic steroids; Z94.0 Kidney transplant status; Z94.4 Liver transplant status
CPT/HCPCS: 52353; 36415; 36416; 76000; 80053; 82365; 82962; 85025; 88300; C2625; J1815; J2405; J2710; J3010; J3490; J7030

== ENCOUNTER → 2021-11-12 09:41 | Outpatient (BNVA) | payer OTHER, SELFPAY | PROVIDERS: PCP Family Medicine; Visit Provider Urology | DX: N20.9 Urinary calculus, unspecified (principal); Z96.0 Presence of urogenital implants | CPT/HCPCS: 52310; 74018; 81003; 82365; 88300 ==

== ENCOUNTER → 2021-11-23 14:25 | Outpatient (BNVA) | payer OTHER, SELFPAY | PROVIDERS: PCP Family Medicine; Visit Provider Specialist | DX: G62.89 Other specified polyneuropathies (principal) | CPT/HCPCS: 95909; 95910 ==

== ENCOUNTER → 2021-12-20 11:14 | Outpatient (BNVA) | payer OTHER, SELFPAY | PROVIDERS: PCP Family Medicine; Visit Provider Specialist | DX: E11.40 Type 2 diabetes mellitus with diabetic neuropathy, unspecified (principal); E11.65 Type 2 diabetes mellitus with hyperglycemia; Z79.4 Long term (current) use of insulin | CPT/HCPCS: 96116; 99214 ==

== ENCOUNTER 2022-01-13 20:00 | Outpatient (CLI) | payer OTHER, SELFPAY | END 2022-01-13 20:01 | disposition home or self-care (01) | LOC: SLEEP 01-14 08:42 | PROVIDERS: PCP Family Medicine; Visit Provider Family Medicine | DX: G47.30 Sleep apnea, unspecified (principal) | CPT/HCPCS: 95810 ==

== ENCOUNTER 2022-03-28 20:00 | Outpatient (CLI) | payer OTHER, SELFPAY | END 2022-03-28 20:01 | disposition home or self-care (01) | LOC: SLEEP 03-29 05:41 | PROVIDERS: PCP Family Medicine; Visit Provider Family Medicine | DX: G47.33 Obstructive sleep apnea (adult) (pediatric) (principal) | CPT/HCPCS: 95811 ==

== ENCOUNTER 2022-05-19 12:25 | Outpatient (CLI) | payer OTHER, SELFPAY ==
--- NOTE | 2022-05-19 12:32 | XR_ITS ---
WS: [id number], AP view, 05/19/2022 Clinical Data: Urolithiasis Comparison: None. Findings: No abnormal intraabdominal masses or calcifications are seen. There is no dilatated small bowel or ev idence of obstruction. There are surgical sutures and will in the right side of the abdomen unchanged. There is radiopaqu e material in the right inguinal area. Some of this material has advanced into retroperitoneal lymph nodes on the left side of the L2-4 vertebral bodies. There are surgical clips in the upper abdomen. XR/XR KUB [id number] Impression: Negative for acute intra-abdominal or pelvic abnormalities.
[2022-05-19 13:37] LABS: Alanine Aminotransferase 226 U/L (0-41); Alkaline Phosphatase 867 U/L (40-130); Anion Gap 17.1 (5-19); Aspartate Amino Transferase 117 U/L (0-40); Blood Urea Nitrogen 16 mg/dL (6-20); Calcium 9.6 mg/dL (8.5-10.5); Carbon Dioxide 21 mmol/L (22-29); Chloride 94 mmol/L (98-107); Globulin 2.6 g/dL (1.3-4.6); Glomerular Filtration Rate 171.4 mL/min (90-130); Glucose 391 mg/dL (65-115); Osmolality Calculated 283 mOsm/kg (285-295); Potassium 4.1 mmol/L (3.5-5.1); Sodium 128 mmol/L (136-145); Total Protein 6.6 g/dL (6.6-8.7)
[2022-05-19 13:38] LABS: Ammonia 36 umol/L (16-60)
[2022-05-19 13:49] LABS: Total Bilirubin 16.3 mg/dL (0.15-1.2)
[2022-05-19 16:04] LABS: Basophils % 0.6 %; Eosinophils # 0.1 10^3/uL (0.0-0.8); Eosinophils % 1.5 %; Hematocrit 38.9 % (42.0-52.0); Hemoglobin 11.7 g/dL (11.7-16.6); Lymphocytes # 0.6 10^3/uL (0.8-4.8); Lymphocytes % 19.1 %; Mean Corpuscular HGB Conc 30.1 g/dL (30.0-36.0); Mean Corpuscular Hemoglobin 28.8 pg (28.0-34.0); Mean Corpuscular Volume 95.8 fl (80-94); Mean Platelet Volume 12.3 fL (7.4-10.4); Monocytes # 0.2 10^3/uL (0.2-0.9); Monocytes % 4.6 %; Neutrophils # 2.38 10^3/uL (1.8-7.7); Neutrophils % 73.6 %; Nucleated Red Blood Cells % 0 %; Platelet Count 185 10^3/cmm (130-400); Red Blood Count 4.06 10^6/uL (4.1-5.3); Red Cell Distribution Width 15.4 % (12.1-15.1); White Blood Count 3.2 10^3/uL (4.0-10.0)
[2022-05-19 16:19] LABS: INR 0.97 (0.8-1.2); Partial Thromboplastin Time 31.4 SECONDS (23.9-36.7)
== END 2022-05-19 12:26 | disposition home or self-care (01) ==
PROVIDERS: PCP Family Medicine; Visit Provider Urology
DX: N20.9 Urinary calculus, unspecified (principal); R17 Unspecified jaundice
CPT/HCPCS: 36415; 74018; 80053; 82140; 85025; 85610; 85730; 99213

== ENCOUNTER → 2022-08-04 14:13 | Outpatient (BNVA) | payer OTHER, SELFPAY | PROVIDERS: PCP Family Medicine; Referring Provider Family Medicine; Visit Provider Internal Medicine | DX: E11.40 Type 2 diabetes mellitus with diabetic neuropathy, unspecified (principal); E11.65 Type 2 diabetes mellitus with hyperglycemia; Z94.4 Liver transplant status; Z94.0 Kidney transplant status; Z79.890 Hormone replacement therapy; Z79.4 Long term (current) use of insulin | CPT/HCPCS: 99214 ==